=== PATIENT | female | born 1935 | race Caucasian/White ===

== ENCOUNTER 2017-01-07 17:52 | Observation (INO) | payer OTHER, MEDICARE ==
--- NOTE | 2017-01-07 18:08 | EDPHY ---
H & P Stated Complaint: increasing memory prob since friday/htn/off one bp med for 7 days HPI/ROS: CHIEF COMPLAINT: Confusion HISTORY OF PRESENT ILLNESS: The patient is an 81-year-old female with history of hypertension who presents with confusion and imbalance. The patient ran out of her Metoprolol. Over the past few days her blood pressures have been normal according to her home BP cuff, though she thinks it is inaccurate. Today at 9am BP was 147/84, at 3pm BP was 174/93. Today she went to a class on foreign policy. She states she could hear the information but was unable to comprehend it. She feels like her "brain is disconnected". She states she has not been getting much sleep. However, over the past 2 days she has slept 8-9 hours each night. She reports intermittent head pressure for the past 2 days. She had one episode of head pressure that lasted for 5 minutes. The patient additionally notes an unsteadiness, she states "for every 10 feet forward I walk 2 feet sideways". This has been ongoing on an intermittent basis for the last 8-9 years. The patient was here 1 year ago with hypertension and dizziness. Patient is not feeling dizzy. She denies change in vision, new weakness, new numbness, current headache, nausea, vomiting, or diarrhea. The patient's znqmlloc-ra-qzz arrived and states the patient has been disoriented since Friday, 2 days ago. REVIEW OF SYSTEMS: A ten point review of systems was performed and is negative with the exception of the items mentioned in the HPI. Source: Patient, Family - Personal History Current Tetanus/Diphtheria Vaccine: Yes - Medical/Surgical History Hx Asthma: No Hx Chronic Respiratory Disease: No Hx Diabetes: No Hx Cardiac Disease: No Hx Renal Disease: No Hx Cirrhosis: No Hx Alcoholism: No Hx HIV/AIDS: No Hx Splenectomy or Spleen Trauma: No Other PMH: HTN, hyperlipidemia, osteoporosis. Sees Dr. Bernabe Sorensen. - Social History Smoking Status: Never smoked Additional Social History: Audits classes at . - Physical Exam Exam: General Appearance: Alert. Vital signs reviewed. Blood pressure 228/112 at triage. Eyes: Pupils equal and round, no conjunctival injection, no discharge. Anicteric. ENT, Mouth: Mucous membranes are dry, no oropharyngeal erythema or edema. Ears : Decreased hearing to finger rubs. Neck: No lymphadenopathy, supple. Respiratory: Lungs are clear to auscultation; no wheezes, rales, or rhonchi. Cardiovascular: Regular rate and rhythm; no murmur, rub, or gallop. Gastrointestinal: Abdomen is soft and nontender, no masses or organomegaly, bowel sounds normal. Skin: Warm and dry, no rashes on exposed skin, normal color. Back: Nontender to palpation over the thoracolumbar spine. No CVAT. Extremities: No lower extremity edema, no calf tenderness or swelling. Neurological: Alert and oriented. Moving all four extremities easily and equally. Cranial nerves II through XII are examined and are intact (visual acuity not tested). Strength is 5 over 5 bilaterally with testing of all major motor groups. Sensation is intact to light touch over all 4 extremities. Deep tendon reflexes are 2+ in the biceps and knees bilaterally. Gait is normal, she does not walk to the side. Zupfjb-rj-ubsk is performed accurately. No truncal ataxia. Psychiatric: Normal affect. Constitutional: Initial Vital Signs Temperature (C) 36.6 C 01/07/17 18:00 Heart Rate 90 01/07/17 18:00 Respiratory Rate 20 01/07/17 18:00 Blood Pressure 228/112 H 01/07/17 18:00 O2 Sat (%) 97 01/07/17 18:00 O2 Delivery Mode Room Air Allergies/Adverse Reactions: scallops Allergy (Verified 01/07/17 17:58) Home Medications: Medication Instructions Recorded Alendronate Sodium [Fosamax 70 MG 70 mg PO PATIÑO@0700 01/07/17 (*)] Atorvastatin Calcium [Lipitor 20 20 mg PO DAILY 01/07/17 mg (*)] Desvenlafaxine Succinate [Pristiq] 100 mg PO DAILY 01/07/17 Levothyroxine [Synthroid 100 mcg 100 mcg PO DAILY06 01/07/17 (*)] Losartan Potassium [Cozaar 50 mg 100 mg PO DAILY 01/07/17 (*)] Tolterodine Tartrate [Tolterodine 2 mg PO DAILY 01/07/17 Tartrate ER] hydrALAZINE [Apresoline 50 mg (*)] 100 mg PO BID 01/07/17 Metoprolol Succinate Xr [Toprol Xl 100 mg PO DAILY #30 tab 01/08/17 100 mg (*)] Medical Decision Making - Diagnostics EKG Interpretation: The 12 lead EKG was interpreted by myself. See hard copy and/or "tracemaster" electronic copy for interpretation: Sinus rhythm, multiple premature complexes, left atrial abnormality. Imaging Results: CT scan of the brain reviewed by me. There is atrophy. No intracranial hemorrhage. I reviewed the radiology report. ED Course/Re-evaluation: The patient is an 81-year-old female presenting with subjectively altered mental status. The patient states she feels disconnected. Ctakjjzg-er-cma states patient has been disoriented for the past 3 days. The patient has a history of hypertension, she recently ran out of her Metoprolol. She takes Hydralazine and Losartan in the morning. Initial blood pressure here is 228/ 112. Plan to give patient IV Metoprolol. Cardiac workup including labs, chest x- ray, and EKG was started. Head CT was ordered. A CT of the head was obtained. I viewed the images myself on the PACS system. Atrophy, no changes from comparison 1 year ago. 7:40 p.m.: BP is 177/77 after patient received 5mg Metoprolol. An x-ray of the chest was obtained. I viewed the images myself on the PACS system. No pneumonia or evidence of failure. I have not found evidence of infection on my emergency department evaluation. I do not suspect meningitis. There is no evidence of intracranial hemorrhage on her CT scan. I think that her confusion is likely hypertensive encephalopathy due to her medication noncompliance. She is mildly hyponatremic but I doubt that this is the cause of her perceived confusion. Troponin is normal and I do not suspect an acute coronary syndrome. 8:15 p.m.: I spoke to the hospitalist, Dr. Gonsales, who accepts the patient for admission. Last pressure was 200/90. Ljwbfzss-du-cpm tells me the patient is not always compliant with her medications. Patient sleeps a lot during the day. Plan to give 100 long acting Metoprolol orally. Differential Diagnosis: Altered mental status including but not limited to hypertensive encephalopathy, hypoglycemia, infectious process, electrolyte abnormality, head injury and intoxicants. - Data Points Laboratory Results: Laboratory Results 01/07/17 18:25 01/07/17 18:25 Medications Given: Discontinued Medications Atorvastatin Calcium (Lipitor) 20 mg PO DAILY WILI Stop: 07/07/17 08:59 Last Admin: 01/08/17 08:59 Dose: 20 mg Hydralazine HCl (Apresoline) 100 mg PO BID WILI Stop: 07/07/17 08:59 Last Admin: 01/08/17 08:59 Dose: 100 mg Sodium Chloride (Ns) 500 mls @ 0 mls/hr IV ONCE ONE PRN Reason: As Directed Stop: 01/07/17 18:49 Last Admin: 01/07/17 19:40 Dose: 500 mls Levothyroxine Sodium (Synthroid) 100 mcg PO DAILY06 WILI Stop: 07/07/17 05:59 Last Admin: 01/08/17 06:03 Dose: 100 mcg Losartan Potassium (Cozaar) 100 mg PO DAILY WILI Stop: 07/07/17 08:59 Last Admin: 01/08/17 08:59 Dose: 100 mg Metoprolol Succinate (Toprol Xl) 100 mg PO DAILY WILI Stop: 07/07/17 08:59 Last Admin: 01/08/17 10:59 Dose: 100 mg Metoprolol Succinate (Toprol Xl) 100 mg PO ONCE ONE Stop: 01/07/17 23:01 Last Admin: 01/07/17 23:14 Dose: 100 mg Metoprolol Tartrate (Lopressor Injection) 5 mg IVP EDNOW ONE Stop: 01/07/17 18:50 Last Admin: 01/07/17 19:40 Dose: 5 mg Metoprolol Tartrate (Lopressor Injection) 5 mg IVP EDNOW ONE Stop: 01/07/17 19:51 Last Admin: 01/07/17 20:00 Dose: 5 mg Miscellaneous Medication (Desvenlafaxine Succinate [Pristiq]) 100 mg PO DAILY WILI Stop: 07/07/17 08:59 Last Admin: 01/08/17 10:21 Dose: Not Given Miscellaneous Medication (Desvenlafaxine Succinate [Pristiq]) 0 mg PO DAILY [facility] Stop: 07/07/17 09:44 Last Admin: 01/08/17 10:59 Dose: 100 mg Tolterodine Tartrate (Detrol La) 2 mg PO DAILY [facility] Stop: 07/07/17 08:59 Last Admin: 01/08/17 08:59 Dose: 2 mg Departure - Departure Disposition: [facility] Acute Condition: Good Report Scribed for: Allison Mayorga Report Scribed by: Willow Melchor Date of Report: 01/07/17 Time of Report: 18:51 Physician Review and Approval Statement: 01/07/17 18:07 Portions of this note were transcribed by the rn medical surgical. I, Dr. Allison Mayorga, personally performed the history, physical exam, and medical decision- making; and confirmed the accuracy of the information in the transcribed note.
[2017-01-07] MEDS ORDERED: NS 500 ML IV ONE (18:48)
[2017-01-07] MEDS ORDERED: METOPROLOL TARTRATE 5 MG/5 ML INJ IVP ONE ×2 (18:49→19:50)
[2017-01-07 18:56] LABS: % IMMATURE GRANULYOCYTES 0.4 % (0.0-1.1); ABSOLUTE IMMATURE GRANULOCYTES 0.03 10^3/uL (0.00-0.10); ADD DIFF? NO; ADD MORPH? NO; ADD SCAN? NO; ATYPICAL LYMPHOCYTE FLAG 10 (0-99); FRAGMENT RBC FLAG 0 (0-99); HEMATOCRIT 44.2 % (38.0-47.0); HEMOGLOBIN 15.4 g/dL (12.6-16.3); LEFT SHIFT FLG 0 (0-99); LIPEMIA HEMOLYSIS FLAG 90 (0-99); MEAN CELL HEMOGLOBIN 31.8 pg (27.9-34.1); MEAN CELL HEMOGLOBIN CONCENTR. 34.8 g/dL (32.4-36.7); MEAN CELL VOLUME 91.3 fL (81.5-99.8); MEAN PLATELET VOLUME 9.2 fL (8.7-11.7); PLATELET CLUMPS FLAG 0 (0-99); PLATELET COUNT 262 10^3/uL (150-400); RED BLOOD CELL COUNT 4.84 10^6/uL (4.18-5.33); RED CELL DISTRIBUTION WIDTH 13.2 % (11.5-15.2)
[2017-01-07 19:08] LABS: ANION GAP 11 mEq/L (8-16); CALCIUM 9.9 mg/dL (8.5-10.4); CARBON DIOXIDE 27 mEq/l (22-31); CHLORIDE 92 mEq/L (97-110); CREATININE 0.7 mg/dL (0.6-1.0); GLOMERULAR FILTRATION RATE > 60; GLUCOSE 105 mg/dL (70-100); POTASSIUM 4.2 mEq/L (3.5-5.2); SODIUM 130 mEq/L (134-144)
[2017-01-07 19:19] LABS: TROPONIN I < 0.012 ng/mL (0-0.034)
--- NOTE | 2017-01-07 19:23 | CPEKG ---
Heart Rate: 88 RR Interval: 682 P-R Interval: 216 QRSD Interval: 106 QT Interval: 400 QTC Interval: 484 P [place]: 79 QRS [place]: -11 T Wave [place]: 99 EKG Severity - ABNORMAL ECG - EKG Impression: SINUS RHYTHM EKG Impression: LEFT ATRIAL ABNORMALITY EKG Impression: CONSIDER ANTEROSEPTAL INFARCT EKG Impression: NONSPECIFIC T ABNORMALITIES, LATERAL LEADS Electronically Signed By: Allison Mayorga 07-Jan-2017 19:48:18
[2017-01-07 21:39] LABS: COLOR PALE YELLOW; LEUKOCYTE ESTERASE,URINE NEGATIVE (NEGATIVE); NITRITE,URINE NEGATIVE (NEGATIVE)
[2017-01-07] MEDS ORDERED: ONDANSETRON 4 MG/2 ML VIAL IVP PRN (22:13)
[2017-01-07] MEDS ORDERED: ONDANSETRON DISINTEGRATING 4 MG TAB PO PRN (22:13)
[2017-01-07] MEDS ORDERED: ACETAMINOPHEN 325 MG TAB PO PRN (22:13)
[2017-01-07] MEDS ORDERED: METOPROLOL SUCCINATE XR 100 MG TAB PO ONE (23:00)
--- NOTE | 2017-01-07 23:01 | GHP ---
[f rep st] HISTORY AND PHYSICAL DATE OF ADMISSION: 01/07/2017 HISTORY OF PRESENT ILLNESS: The patient is an 81-year-old female with a history of hypertension. S he takes metoprolol-XL, hydralazine, and losartan. Patient ran out of the metoprolol about a week a go. Couple days ago, she was feeling a bit foggy and disconnected. Today, she attended a lecture a nd had a hard time comprehending the content of what was being said even though she understood the w ords. She denies focal weakness. She denies chest pain, shortness of breath, PND, orthopnea, lower extremity edema, urgency, frequency, dysuria, nausea, vomiting, diarrhea. She also had some head pressure and headache, and perhaps some unsteadiness on her feet. Patient's acyqzwla-pg-pig is present at the bedside and said that she was a bit disoriented on . She said her blood pressures were taken as high as 174/93. However, on presentation today, her pres enting blood pressure is 228/112. Again, no anginal symptoms. REVIEW OF SYSTEMS: A complete 10-point review of systems conducted, negative except as noted in the HPI. ALLERGIES: Scallops. HOME MEDICATIONS: Alendronate, atorvastatin, desvenlafaxine, hydralazine, levothyroxine, losartan, Toprol-XL, and tolterodine. PAST MEDICAL HISTORY: Hypertension, hypothyroidism, osteoporosis, hyperlipidemia, and bladder spasm s. SOCIAL HISTORY: No tobacco. Rare alcohol. Lives in [place]. Primary care physician is Dr. Bernabe spicer, [facility]. Incidentally, a good friend of mine. FAMILY HISTORY: Parents . PHYSICAL EXAMINATION: VITAL SIGNS: Temperature 36.6. Blood pressure 228/112, now 162/77. Pulse 9 0, breathing 20 times a minute, 97% on room air. GENERAL: In no acute distress. Alert, articulate . HEENT: Sclerae anicteric. Oropharynx clear. Mucous membranes moist. NECK: Supple. No lympha denopathy or JVD. LUNGS: Clear to auscultation bilaterally. HEART: S1, S2, without murmurs. ABD OMEN: Soft, nontender, nondistended. LOWER EXTREMITIES: No edema. Calves nontender. SKIN: With out rash. NEUROLOGIC: Grossly nonfocal. LABS: White count 8, hematocrit 44, platelets are 262,000. Sodium 130, potassium 4.2, chloride 92, bicarb 27, BUN 17, creatinine 0.7, glucose 105. Troponin less than 0.012. UA is negative. EKG, interpreted by me, shows sinus at 88 with borderline left axis deviation with no ST or T-wave c hanges. There is a PVC, left bundle branch block pattern. Chest x-ray, interpreted by me, shows no heart failure. No acute cardiopulmonary disease. Noncontrast head CT shows elderly brain with sta ble findings of atrophy of probable white matter. No evidence of hemorrhage. I discussed the case Dr. Allison Mayorga. ASSESSMENT AND PLAN: An 81-year-old female with likely hypertensive encephalopathy. 1. Hypertensive encephalopathy, markedly hypertensive with inadvertent cessation of one of her medi cations. We will restart them. This is not a bleed. I do not think it represents an acute cerebro vascular accident, given the absence of focal findings. There is no metabolic derangement, such as urinary tract infection or hyponatremia, to drive the concern for toxic metabolic encephalopathy. I do note her sodium of 130. There is no prior for comparison. To that end, we will give her dose o f Toprol-XL tonight and restart her medications tomorrow. Follow her on telemetry and cycle troponi ns. 2. Hyponatremia. This is mild. We have no prior for comparison. I suspect this is not the etiolo gy or driving what is going on. She did have a sodium of 139 one year ago. We will repeat it in th e morning. We will check a TSH in the morning. 3. Hypothyroidism. Check a TSH in the morning. 4. Hypertension. Continue her medications. We will send her out with a script for Toprol-XL. 5. Prophylaxis. Pharmacologic prophylaxis indicated if in the hospital longer than 24 hours, which I do not anticipate. 6. Disposition: Observation status. /[id number]/MODL
[2017-01-08 05:43] LABS: ANION GAP 7 mEq/L (8-16); CALCIUM 8.7 mg/dL (8.5-10.4); CARBON DIOXIDE 26 mEq/l (22-31); CHLORIDE 99 mEq/L (97-110); CREATININE 0.7 mg/dL (0.6-1.0); GLOMERULAR FILTRATION RATE > 60; GLUCOSE 94 mg/dL (70-100); POTASSIUM 4.2 mEq/L (3.5-5.2); SODIUM 132 mEq/L (134-144)
[2017-01-08 05:50] LABS: TROPONIN I 0.016 ng/mL (0-0.034)
[2017-01-08] MEDS ORDERED: LEVOTHYROXINE 100 MCG TAB PO SCH (06:00)
[2017-01-08] MEDS ORDERED: Desvenlafaxine Succinate [Pristiq] 100 MG PO SCH ×3 (09:00→09:45)
[2017-01-08] MEDS ORDERED: LOSARTAN POTASSIUM 50 MG TAB PO SCH (09:00)
[2017-01-08] MEDS ORDERED: TOLTERODINE TARTRATE 2 MG EXT REL CAP PO SCH (09:00)
[2017-01-08] MEDS ORDERED: ATORVASTATIN CALCIUM 20 MG TAB PO SCH (09:00)
[2017-01-08] MEDS ORDERED: METOPROLOL SUCCINATE XR 100 MG TAB PO SCH (09:00)
[2017-01-08 11:53] VITALS: BP 111/54; PULSE 90; RESP 19; TEMP 97.8; O2SAT 94
--- NOTE | 2017-01-08 15:25 | PDDCSUM ---
Discharge Summary Discharge Summary: DISCHARGE SUMMARY FOLLOW-UP ITEMS: Monitor blood pressure readings through primary care office DATE OF ADMISSION: 01/07/17 DATE OF DISCHARGE: 01/08/17 DISCHARGE DIAGNOSES: 1. Hypertensive crisis 2. Acute hyponatremia CONSULTATIONS: None PROCEDURES / IMAGING: Head CT demonstrating no intracranial hemorrhage CHIEF COMPLAINT: Cognitive fogginess SUBJECTIVE: Patient is feeling well at time of discharge PHYSICAL EXAM ON DISCHARGE: Systolic blood pressure is 140-160, heart rate 80, afebrile overnight, satting well on room air, alert awake oriented x3 no apparent distress, cranial nerves 2 -12 are intact and tested, motor strength 5/5 bilateral upper and lower extremities LABS ON DISCHARGE: Creatinine 0.7, potassium 4.2, serum sodium 132 HOSPITAL COURSE BY PROBLEM: 1. Hypertensive crisis. Patient experienced acute hypertensive urgency with cognitive symptoms but no overt air intracranial hemorrhage or other end-organ failure. This was secondary to recent discontinuation of 1 of her home antihypertensive medications. We re-initiated her home metoprolol succinate, continued her other medications, and her systolic blood pressure was in a healthy range at time of discharge. Hypertensive symptoms were also improved. Of note, the patient's home blood pressure cuff may be inaccurate and we recommended that she follow up in the short term with her primary care provider for blood pressure recheck and potential addition of hydrochlorothiazide. 2. Acute hyponatremia. Most likely secondary to renal hypoperfusion in the setting of high blood pressures and potentially reduced cardiac output. Her blood pressures were improved, her serum sodium level improved, no further workup is indicated. DISCHARGE MEDICATIONS: Please see official discharge medication reconciliation sheet in chart , metoprolol succinate 100 mg daily, losartan 100 mg daily, hydralazine 100 mg twice daily. DISCHARGE INSTRUCTIONS: Follow up with primary care provider on 01/13.
[2017-01-08] MEDS ORDERED: METOPROLOL SUCCINATE XR 100 MG TAB PO ONE (20:56)
== END 2017-01-08 13:15 | disposition home or self-care (01) ==
LOC: F2W 21:49
PROVIDERS: ADMIT Internal Medicine; ATTEND Internal Medicine
DX: I16.9 Hypertensive crisis, unspecified (principal); E87.1 Hypo-osmolality and hyponatremia; E03.9 Hypothyroidism, unspecified; E78.5 Hyperlipidemia, unspecified
CPT/HCPCS: 70450; 71020; 93005; G0378; 96374

== ENCOUNTER 2017-10-12 17:52 | Inpatient (IN) | payer OTHER, MEDICARE ==
--- NOTE | 2017-10-12 18:41 | EDPHY ---
H & P Time Seen by Provider: 10/12/17 18:12 HPI/ROS: HPI Right hip pain. Fall. 82-year-old female for by private vehicle with downstairs neighbor. Patient was sitting at her dinner table. She fell asleep at the dinner table. She fell off the side of the chair onto her right hip and shoulder. She was startled by the impact and immediately awoke. She reports that she had a mild headache earlier but has no headache now. She has had no nausea or vomiting. She complained of some right shoulder discomfort but she denies this now as well. She complains of right hip pain that is worse with any movement. She describes this as pain in the posterior lateral aspect of the hip in the medial aspect of the mid femur. No other complaint or injury. ROS: Constitutional: No fever, no chills. No weakness. Eyes: No discharge. No changes in vision. ENT: No sore throat. No nasal congestion or rhinorrhea. Respiratory: No cough. No shortness of breath. Cardiac: No chest pain, no palpitations. Gastrointestinal: No abdominal pain, no vomiting, no diarrhea. Genitourinary: No hematuria. No dysuria or increased frequency with urination. Musculoskeletal: No back pain. No neck pain. As above. Skin: No rashes. No lacerations or abrasions. Neurological: No headache. No focal weakness or altered sensation. Past medical history: Hypertension, hyperlipidemia, osteoporosis, she is fractured her left femur. Her primary care physician is Dr. Ross. She does not take any anticoagulant or antiplatelet agents. Social history: Physical Exam: General Appearance: Alert, no distress. This patient is responding to questions appropriately and in full sentences. This patient appears well- hydrated and well-nourished. Head: Normocephalic atraumatic. Face: Facial bones are stable on palpation. Eyes: Pupils equal and round and reactive to light, no pallor or injection. No lid erythema or edema. ENT, Mouth: Mucous membranes moist. Dentition is intact. No malocclusion of the jaw. No tongue lacerations or abrasions. Pharynx is clear. The bilateral nasal canals are clear. No septal hematoma. Respiratory: There are no retractions, lungs are clear to auscultation with good air movement bilaterally. Chest wall is stable to AP and lateral palpation. Cardiovascular: Regular rate and rhythm. No murmur. Gastrointestinal: Abdomen is soft and nontender, no masses, bowel sounds normal. Neurological: Motor sensory function is intact. Cranial nerves are normal. Cerebellar function intact. Skin: Warm and dry, no rashes. No lacerations, abrasions or contusions. Musculoskeletal: Neck is supple and nontender. The trachea is midline. No midline cervical, thoracic, lumbar or sacral tenderness on palpation. No flank tenderness on palpation. Right lower extremity is elevated by a pillow under the knee 45 degree angle at the knee. The right lower extremity appears slightly shorter than the left lower extremity. She has got some tenderness on palpation over the posterior lateral hip area. No palpable deformity or crepitus noted on palpation of this area. The right lower extremity is neurovascularly intact. Extremities are symmetrical, full range of motion otherwise. All joints in the bilateral upper and bilateral lower extremities range without pain or impingement other than noted. No tenderness on palpation of the long bones in the bilateral upper and bilateral lower extremities other than noted. Psychiatric: No agitation. No depression. Database: EKG: Imaging: Right hip x-ray series: Significant for a femoral neck fracture. Interpreted by me. Procedures: Emergency department course: Vital signs reviewed. She is moderately hypertensive. Vital signs otherwise normal. An IV was placed. At this time she is declining pain medication. She was sent for right hip x-ray series. Patient given 25 mcg of IV fentanyl and 4 mg of IV Zofran prior to x-rays. Started on IV normal saline with 500 cc to be given over the next hour. 7:45 p.m., patient re-evaluated. Discussed results of x-ray and diagnosis of femoral neck fracture. Discussed need for admission and orthopedic consultation. 8:30 p.m., spoke with Dr. Sukumar Lackey of the Orthopedic service. He will plan on operating on this patient tomorrow morning. 8:45 p.m., Dr. Grace, admitting hospitalist notify the patient is to be NPO after midnight and plan for surgery tomorrow by Dr. Lackey. The patient's remaining emergency department course under my care has been uneventful. The patient was admitted in stable condition to the hospitalist service. Differential Diagnosis: The differential diagnosis on this patient includes but is not limited to right hip fracture, right femur fracture. Traumatic brain injury This represents a partial list of diagnoses considered. These considerations are based on history , physical exam, past history, reassessment and diagnostic testing. Smoking Status: Former smoker Constitutional: Initial Vital Signs Temperature (C) 36.6 C 10/12/17 18:07 Heart Rate 62 10/12/17 18:07 Respiratory Rate 20 10/12/17 18:07 Blood Pressure 162/86 H 10/12/17 18:07 O2 Sat (%) 96 10/12/17 18:07 O2 Delivery Mode Nasal Cannula O2 (L/minute) 2 Allergies/Adverse Reactions: scallops Allergy (Verified 01/07/17 17:58) Home Medications: Medication Instructions Recorded Atorvastatin Calcium [Lipitor 20 20 mg PO DAILY 01/07/17 mg (*)] Desvenlafaxine Succinate [Pristiq] 100 mg PO DAILY 01/07/17 Levothyroxine [Synthroid 100 mcg 100 mcg PO DAILY06 01/07/17 (*)] Losartan Potassium [Cozaar 50 mg 100 mg PO DAILY 01/07/17 (*)] hydrALAZINE [Apresoline 50 mg (*)] 100 mg PO BID 01/07/17 Metoprolol Succinate Xr [Toprol Xl 100 mg PO DAILY #30 tab 01/08/17 100 mg (*)] Medical Decision Making - Diagnostics Imaging Results: Imaging Impressions Femur X-Ray 10/12/17 18:32 Impression: Right femoral neck fracture. Pelvis X-Ray 10/12/17 18:32 Impression: Right hip fracture.. - Data Points Laboratory Results: Laboratory Results 10/12/17 19:40 10/12/17 19:40 10/12/17 10/12/17 19:40 19:40 WBC 11.96 10^3/uL H 10^3/uL (3.80-9.50) RBC 4.18 10^6/uL 10^6/uL (4.18-5.33) Hgb 13.7 g/dL g/dL (12.6-16.3) Hct 39.6 % % (38.0-47.0) MCV 94.7 fL fL (81.5-99.8) MCH 32.8 pg pg (27.9-34.1) MCHC 34.6 g/dL g/dL (32.4-36.7) RDW 13.0 % % (11.5-15.2) Plt Count 218 10^3/uL 10^3/uL (150-400) MPV 9.1 fL fL (8.7-11.7) Neut % (Auto) 80.0 % H % (39.3-74.2) Lymph % (Auto) 11.9 % L % (15.0-45.0) Kerr % (Auto) 6.8 % % (4.5-13.0) Eos % (Auto) 0.3 % L % (0.6-7.6) Baso % (Auto) 0.3 % % (0.3-1.7) Nucleat RBC Rel Count 0.0 % % (0.0-0.2) Absolute Neuts (auto) 9.58 10^3/uL H 10^3/uL (1.70-6.50) Absolute Lymphs (auto) 1.42 10^3/uL 10^3/uL (1.00-3.00) Absolute Monos (auto) 0.81 10^3/uL H 10^3/uL (0.30-0.80) Absolute Eos (auto) 0.04 10^3/uL 10^3/uL (0.03-0.40) Absolute Basos (auto) 0.03 10^3/uL 10^3/uL (0.02-0.10) Absolute Nucleated RBC 0.00 10^3/uL 10^3/uL (0-0.01) Immature Gran % 0.7 % % (0.0-1.1) Immature Gran # 0.08 10^3/uL 10^3/uL (0.00-0.10) Sodium 130 mEq/L L mEq/L (135-145) Potassium 3.9 mEq/L mEq/L (3.5-5.2) Chloride 92 mEq/L L mEq/L (97-110) Carbon Dioxide 24 mEq/l mEq/l (22-31) Anion Gap 14 mEq/L mEq/L (8-16) BUN 17 mg/dL mg/dL (7-23) Creatinine 0.7 mg/dL mg/dL (0.6-1.0) Estimated GFR > 60 Glucose 99 mg/dL mg/dL (70-100) Calcium 9.4 mg/dL mg/dL (8.5-10.4) Medications Given: Discontinued Medications Fentanyl (Sublimaze) 25 mcg IVP EDNOW ONE Stop: 10/12/17 18:47 Last Admin: 10/12/17 18:50 Dose: 25 mcg Sodium Chloride (Ns) 500 mls @ 0 mls/hr IV EDNOW ONE; Wide Open PRN Reason: Protocol Stop: 10/12/17 18:47 Last Admin: 10/12/17 18:52 Dose: 500 mls Ondansetron HCl (Zofran) 4 mg IVP EDNOW ONE Stop: 10/12/17 18:47 Last Admin: 10/12/17 18:50 Dose: 4 mg Departure - Departure Disposition: [facility] Inpatient Acute Clinical Impression: Injury of right hip, Fall from chair, Fracture of femoral neck, right
[2017-10-12] MEDS ORDERED: NS 500 ML IV ONE (18:46)
[2017-10-12] MEDS ORDERED: ONDANSETRON 4 MG/2 ML VIAL IVP ONE (18:46)
[2017-10-12] MEDS ORDERED: fentaNYL 100 MCG/2 ML INJ IVP ONE (18:46)
[2017-10-12 19:55] LABS: PLATELET COUNT 218 10^3/uL (150-400)
[2017-10-12] MEDS ORDERED: ONDANSETRON DISINTEGRATING 4 MG TAB PO PRN (21:41)
[2017-10-12] MEDS ORDERED: OXYCODONE/APAP 5/325 TAB PO PRN (21:41)
[2017-10-12] MEDS ORDERED: ACETAMINOPHEN 325 MG TAB PO PRN (21:41)
[2017-10-12] MEDS ORDERED: ONDANSETRON 4 MG/2 ML VIAL IVP PRN (21:41)
[2017-10-12] MEDS ORDERED: HYDRALAZINE HCL 100 MG PO SCH (22:00)
[2017-10-12] MEDS: NS 1,000 ML IV SCH (22:18)
--- NOTE | 2017-10-12 22:20 | GHP ---
[f rep st] HISTORY AND PHYSICAL DATE OF ADMISSION: 10/12/2017 CHIEF COMPLAINT: Right hip pain after fall. HISTORY OF PRESENT ILLNESS: This is an 82-year-old female with a history of hypertension and obstruc tive sleep apnea. She states that her obstructive sleep apnea is not that well treated. She frequen tly falls asleep during the day. She was at dinner table and fell asleep, slid off her chair, and hi t her right hip as well as her head. She woke up immediately. She complained of right hip pain and has a hip fracture. She does have a little bit of shortness of breath, she says, after the fall. He r head does hurt a little bit where she fell on it. She also has some neck pain that is around the m uscles. She denies any chest pain. She is able to walk around town without any chest pain. She has severe arthritis that limits a lot of her mobility. REVIEW OF SYSTEMS: Ten-point review of systems was obtained and otherwise was negative. PAST MEDICAL HISTORY: 1. Hypertension, which seems to be a little bit difficult to control. 2. Obstructive sleep apnea. 3. Depression. 4. Hypothyroidism. 5. Hyperlipidemia. MEDICATIONS: Reviewed. SOCIAL HISTORY: No smoking. Lives with her son and [id number] in an apartment downstairs. FAMILY HISTORY: Both parents are . PHYSICAL EXAM: VITAL SIGNS: Afebrile, blood pressure 172/73, heart rate 84, oxygen saturation 95% 2 L. GENERAL: Patient is well developed, in no apparent distress. HEENT: Nonicteric sclerae. Extr aocular movements intact. Moist mucous membranes. NECK: Supple. No thyromegaly. LUNGS: Good eff ort. Clear to auscultation bilaterally. CARDIOVASCULAR: Regular rate and rhythm. No murmurs, rubs , or gallops. ABDOMEN: Positive bowel sounds. Soft, nontender, nondistended. No hepatosplenomegal y. EXTREMITIES: No clubbing, cyanosis, or edema. SKIN: Without rash. Warm, dry, intact. NEUROLO GIC: Alert and oriented x3. Moving all 4 extremities equally. PSYCH: Normal affect. DATA REVIEWED: Femur x-ray shows right femoral neck fracture. CBC is essentially normal. Sodium is low at 130. Creatinine is normal. ASSESSMENT: An 82-year-old female presenting with a right hip fracture. PLAN: 1. Right hip fracture. Patient will be going to OR tomorrow. She is medically optimized for surger y, which can proceed tomorrow. We will get an EKG and a chest x-ray prior to the operation. 2. Hyponatremia, probably related to her hydrochlorothiazide, which we will hold perioperatively. 3. Hypertension. Will continue her oral hydralazine, metoprolol, losartan. 4. Obstructive sleep apnea. Continue CPAP at night. 5. Code status. Patient is a full code. /[id number]/MODL
--- NOTE | 2017-10-12 22:27 | CPEKG ---
Heart Rate: 84 RR Interval: 714 P-R Interval: 244 QRSD Interval: 108 QT Interval: 372 QTC Interval: 440 P Cleveland: 76 QRS Cleveland: -13 T Wave Cleveland: 127 EKG Severity - ABNORMAL ECG - EKG Impression: SINUS RHYTHM EKG Impression: FIRST DEGREE AV BLOCK EKG Impression: PROBABLE LEFT ATRIAL ABNORMALITY EKG Impression: CONSIDER ANTEROSEPTAL INFARCT EKG Impression: ABNORMAL T, CONSIDER ISCHEMIA, LATERAL LEADS Electronically Signed By: Jair Magallanes 13-Oct-2017 06:06:16
[2017-10-13] MEDS: LEVOTHYROXINE 100 MCG TAB PO SCH (05:13)
[2017-10-13 05:36] LABS: PLATELET COUNT 188 10^3/uL (150-400)
--- NOTE | 2017-10-13 07:59 | PDMN ---
Medical Necessity Medical necessity: est los>2mn for R hip fx r/t fall from chair, requiring surgical intervention, and hyponatremia; comorbid advanced age, poorly controlled htn; SILVIA, HLD, and depression; per order and H&P 10/12/17
[2017-10-13] MEDS ORDERED: NON-FORMULARY NEW DRUG (Desvenlafaxine Succinate [Pristiq] 100 MG) PO SCH (09:00)
[2017-10-13] MEDS: DESVENLAFAXINE SUCCINATE PO SCH (09:54)
[2017-10-13] MEDS ORDERED: ceFAZolin 2 GM/SWFI 2 GM/20 ML SYR IVP ONE (09:58)
[2017-10-13] MEDS: METOPROLOL SUCCINATE XR 50 MG TAB PO SCH (10:39)
[2017-10-13] MEDS: ATORVASTATIN CALCIUM 20 MG TAB PO SCH (10:39)
[2017-10-13] MEDS: LOSARTAN POTASSIUM 50 MG TAB PO SCH (10:42)
[2017-10-13] MEDS: NS 1,000 ML IV SCH (11:26)
--- NOTE | 2017-10-13 13:32 | ASMTCASEMG ---
Living Arrangements What is your living Answers: Alone arrangement? Who do you live with? Type Of Residence What kind of residence do Answers: House you live in? Discharge Plan Comments Coordination Status Comments Notes: CM spoke w/ HANNA Alcazar regarding d/c POC. Pt is a 82 y/o female admitted for right hip fracture. Pt will most likely need a surgical intervention. Needs are TBD at this time. CM will follow post surgery. CM to follow. Plan: TBD Date Signed: 10/13/2017 01:32 PM Electronically Signed By:MLEI Benoit
[2017-10-13] MEDS ORDERED: BUPIVACAINE/EPI 0.5% 30 ML SDV ONE (14:24)
[2017-10-13] MEDS ORDERED: BUPIVACAINE 0.5% 30 ML SDV ONE (14:24)
[2017-10-13] MEDS ORDERED: POLYMYXIN B SULFATE 500,000 UNIT/10 ML SYR IRR ONE (14:25)
[2017-10-13] MEDS ORDERED: BACITRACIN 50,000 UNITS/10 ML SYR IRR ONE (14:25)
[2017-10-13] MEDS ORDERED: LIDOCAINE 1% 2 ML INJ ID PRN (14:58)
[2017-10-13] MEDS ORDERED: LR 1,000 ML IV ONE (14:58)
[2017-10-13] MEDS ORDERED: BUPIVACAINE 0.25% 30 ML SDV ONE (15:12)
--- NOTE | 2017-10-13 15:46 | PDANEPAE ---
ANE History of Present Illness 82 year old female for right hip fracture repair. ANE Past Medical History - Cardiovascular History Hx Hypertension: Yes Hx Arrhythmias: No Hx Chest Pain: No Hx Coronary Artery / Peripheral Vascular Disease: No Hx CHF / Valvular Disease: No Hx Palpitations: No - Pulmonary History Hx COPD: No Hx Asthma/Reactive Airway Disease: No Hx Recent Upper Respiratory Infection: No Hx Oxygen in Use at Home: No Hx Sleep Apnea: Yes Sleep Apnea Screening Result - Last Documented: Positive - Endocrine History Hx Diabetes: No Hypothyroid: No Hyperthyroid: No Obesity: no - Renal History Hx Renal Disorders: No - Liver History Hx Hepatic Disorders: No - Neurological & Psychiatric Hx Hx Neurological and Psychiatric Disorders: No ANE Review of Systems Review of systems is: negative Review of Systems: - Exercise capacity Exercise capacity: >=4 METS ANE Patient History - Allergies Allergies/Adverse Reactions: scallops Allergy (Verified 10/12/17 21:08) Vomiting - Home Medications Home medications: home medication list seen and reviewed Home Medications: Atorvastatin Calcium [Lipitor 20 mg (*)] 20 mg PO DAILY 01/07/17 [Last Taken ] Desvenlafaxine Succinate [Pristiq] 100 mg PO DAILY 01/07/17 [Last Taken 10/12/17 ] Levothyroxine [Synthroid 100 mcg (*)] 100 mcg PO DAILY06 01/07/17 [Last Taken ] Hydralazine HCl [Apresoline 100 mg] 100 mg PO TID 10/12/17 [Last Taken 10/12/17 16:00] Losartan/Hydrochlorothiazide [Hyzaar 100-25 Tablet] 1 each PO DAILY 10/12/17 [ Last Taken 10/12/17] - NPO status NPO Since - Liquids (Date): 10/12/17 NPO Since - Liquids (Time): 23:30 NPO Since - Solids (Date): 10/12/17 NPO Since - Solids (Time): 22:00 - Smoking Hx Smoking Status: Former smoker ANE Labs/Vital Signs - Labs Result Diagrams: 10/13/17 05:29 10/13/17 05:29 - Vital Signs Vital Signs: reviewed preoperatively; see RN documention for details Blood Pressure: 162/72 Heart Rate: 80 Respiratory Rate: 16 O2 Sat (%): 92 Height: 154.94 cm Weight: 59.421 kg ANE Physical Exam - Airway Neck exam: FROM Mallampati Score: Class 2 Mouth exam: poor dentition (All upper teeth recently removed) - Pulmonary Pulmonary: no respiratory distress - Cardiovascular Cardiovascular: regular rate and rhythym - ASA Status ASA Status: III ANE Anesthesia Plan Anesthesia Plan: general endotracheal anesthesia Total IV Anesthesia: No
[2017-10-13] MEDS ORDERED: PROPOFOL 200 MG/20 ML VIAL ONE (15:49)
[2017-10-13] MEDS ORDERED: fentaNYL 100 MCG/2 ML INJ ONE (15:49)
--- NOTE | 2017-10-13 16:08 | HOSPPROG ---
Hospitalist Progress Note Assessment/Plan: 82y female with hip pain after fall. First encounter, chart reviewed. #Hip fx to OR today #Hx SILVIA cont CPAP #Hyponatremia follow possibly related to HCTZ recheck in am #HTN mild may need meds added #Leukocytosis resolved 2/2 fracture likely #Dispo will need SNF admit to inpt D/W pt and daughter in law labs in am Subjective: Feeling well. Pain controlled. No other issues. Objective: Vital Signs Temp Pulse Resp BP Pulse Ox 37.7 C 80 16 162/72 H 92 10/13/17 12:00 10/13/17 15:46 10/13/17 15:46 10/13/17 15:46 10/13/17 15:46 Laboratory Results 10/13/17 05:29 10/13/17 05:29 10/12/17 10/13/17 10/14/17 05:59 05:59 05:59 Intake Total 500 Output Total 525 450 Balance -25 -450 - Physical Exam Constitutional: no apparent distress, appears nourished, obese Eyes: PERRL, anicteric sclera, EOMI Ears, Nose, Mouth, Throat: moist mucous membranes, hearing normal, ears appear normal Cardiovascular: regular rate and rhythym, No JVD, No edema Respiratory: no respiratory distress, no rales or rhonchi, reduced air movement Gastrointestinal: normoactive bowel sounds, No tenderness, No ascites Skin: warm, normal color, No erythema Musculoskeletal: joint tenderness, pain with ROM, generalized weakness Neurologic: AAOx3 Psychiatric: interacting appropriately, not anxious, not encephalopathic, thought process linear ICD10 Worksheet Patient Problems: Problems Problem Status Onset Hypertensive urgency Acute Injury of right hip Acute Fall from chair Acute Fracture of femoral neck, right Acute
[2017-10-13] MEDS ORDERED: LR 500 ML IV PRN (17:01)
[2017-10-13] MEDS ORDERED: PHENYLEPHRINE HCL 100 MCG/ML SYR IVP PRN (17:01)
[2017-10-13] MEDS ORDERED: ONDANSETRON 4 MG/2 ML VIAL IVP PRN (17:01)
[2017-10-13] MEDS ORDERED: LABETALOL HCL 5 MG/ML 20 ML MDV IVP PRN (17:01)
[2017-10-13] MEDS ORDERED: fentaNYL 100 MCG/2 ML INJ IVP PRN (17:01)
[2017-10-13] MEDS ORDERED: NALOXONE HCL 0.4 MG/ML INJ IVP PRN (17:01)
[2017-10-13] MEDS ORDERED: SUGAMMADEX SODIUM 200 MG/2 ML VIAL IVP ONE (17:07)
[2017-10-13] MEDS ORDERED: ONDANSETRON 4 MG/2 ML VIAL ONE (17:07)
[2017-10-13] MEDS ORDERED: ROCURONIUM 50 MG/5 ML VIAL ONE (17:08)
[2017-10-13] MEDS ORDERED: PHENYLEPHRINE 10 MG/ML SDV ONE (17:08)
[2017-10-13] MEDS ORDERED: LIDOCAINE 2% 5 ML SDV ONE (17:08)
--- NOTE | 2017-10-13 17:37 | POSTOPPROG ---
Post Op Note Date of Operation: 10/13/17 Surgeon: Sukumar Lackey Anesthesiologist: Amrik QUINN Anesthesia: GET(General Endotracheal) Pre-op Diagnosis: R hip valgus impacted femoral neck fracture Post-op Diagnosis: same Procedure: R hip percutaneous screw fixation Inf/Abcess present in the surg proc area at time of surgery?: No EBL: 50-100 (30)
[2017-10-13] MEDS ORDERED: hydrALAZINE 20 MG/ML VIAL IVP PRN (17:49)
[2017-10-13] MEDS ORDERED: hydrALAZINE 20 MG/ML VIAL ONE (17:57)
--- NOTE | 2017-10-13 19:23 | GCON ---
[f rep st] CONSULTATION ORTHOPEDIC CONSULTATION DATE OF CONSULTATION: 10/13/2017 CHIEF COMPLAINT: Right hip pain. HISTORY OF PRESENT ILLNESS: 82-year-old female fell sleep at the dinner table and fell off to her ri t side. Complained of immediate pain. She did hit her head, but denies unconsciousness. She has had a left femoral neck fracture treated with percutaneous screw fixation approximately 8 years ago, which she has done well from. She has no shortness of breath, fever, chills, nausea, vomiting, chest pain, numbness, or tingling upon examination. She typically ambulates without an assistive device, but does move slowly and minimally. PAST MEDICAL HISTORY: Includes hypertension, obstructive sleep apnea, depression, hypothyroidism, an d hyperlipidemia. PAST SURGICAL HISTORY: As above. ALLERGIES: Scallops. MEDICATIONS: Reviewed. SOCIAL HISTORY: Denies smoking. PHYSICAL EXAM: VITAL SIGNS: Stable. She is afebrile. GENERAL: Awake, alert, and oriented x3, in no acute distress. HEENT: White sclerae. RESPIRATORY: Easy nonlabored breathing. ABDOMEN: Soft and nontender, nondistended. EXTREMITIES: Right lower extremity is in a flexed and internally rotated position for comfort. There is no erythe ma or ecchymoses surrounding her right hip. Mild swelling. Compartments of her thigh and calf are s oft and nontender. She has motor intact to EHL, FHL, tibialis anterior, gastrocsoleus. Palpable DP, PT pulses. LABORATORY DATA: Reviewed, reveals a white count of 9.39, hemoglobin 13.2. IMAGING: Pelvis x-ray reveals a valgus impacted right-sided femoral neck fracture, as well as previo us hardware from the left hip percutaneous screw fixation. ASSESSMENT AND PLAN: 82-year-old female with a right hip valgus impacted femoral neck fracture. Rec ommend percutaneous screw fixation. Risks and benefits of surgery and nonoperative treatment were di scussed, including a high risk of morbidity and mortality with non operative treatment. Risks of caitie janel include inherent risks of general anesthesia, including heart attack, stroke, and remote possibi lity of ; inherent risks of surgery including bleeding, infection, and damage to surrounding dinah tomic structures; specific to this procedure, the risk of malunion, nonunion, symptomatic hardware, t he possibility of subsequent surgery in the event of hardware failure or malunion or nonunion, and co nversion to total hip arthroplasty. The patient and [id number] were educated on the fact that e lu with surgical management hip fractures, in this patient population, present a 20% to 30% chance o f morbidity and mortality in the first year from surgery. Patient and the daughter in-law understand and agree. Consent was signed by the patient. /[id number]/MODL
--- NOTE | 2017-10-13 20:12 | POSTANESTH ---
Post Anesthetic Evaluation Cardiovascular Status: Normal, Stable, Similar to Pre-Op Cond Respiratory Status: Normal, Stable, Similar to Pre-op Cond. Level of Consciousness/Mental Status: Can Participate in Eval, Alert and Oriented Pain Control: Adequate, Prn Tx Ordered Nausea/Vomiting Control: Adequate, Prn Tx Ordered Complications Possibly Related to Anesthesia: None Noted
--- NOTE | 2017-10-13 20:54 | GOP ---
[f rep st] OPERATIVE REPORT DATE OF OPERATION: 10/13/2017 SURGEON: Sukumar Lackey MD ANESTHESIA: General. PREOPERATIVE DIAGNOSIS: Right hip valgus impacted femoral neck fracture. POSTOPERATIVE DIAGNOSIS: Right hip valgus impacted femoral neck fracture. PROCEDURE PERFORMED: Right hip percutaneous screw fixation of the femoral neck fracture. FINDINGS: SPECIMENS: None. ESTIMATED BLOOD LOSS: 30 cc. INDICATIONS: Patient sustained a mechanical fall sustaining the injury. She had a previous injury o n the left which was treated in a similar fashion. After discussion of the pros, cons, risks, benefi ts, expected recovery and prognosis, as well as the pros, cons versus nonoperative treatment, she liu cted to proceed with the procedure. She verbalized understanding of the risks and benefits of the pr ocedure and signed the informed consent. DESCRIPTION OF PROCEDURE: Patient was seen in the holding area. Operative site was signed. The pat ient was taken to the operating room and induced under general anesthesia. She was placed on the fra cture table and appropriately positioned under fluoroscopy. The right hip was prepped and draped in the usual sterile fashion. Operative site was confirmed by signature. Operative time-out performed. Allergies reviewed. Antibiotics administered. In a percutaneous fashion, guidewires were placed under fluoroscopic visualization in an inverse tria ngle formation. Cannulated drill was then used to drill over the guide pins. Appropriate length scr ews were then inserted again under fluoroscopic visualization. The guide pins were removed. The inc ision was irrigated with sterile saline. Closed with 2-0 Vicryl and 4-0 V-Loc. Dermabond, Steri-Str ips and sterile dressings were applied. The patient was safely awakened and extubated, taken recover y room in stable condition. The entire procedure was performed by myself, Dr. Lackey. Dictation was pe rformed by myself, Dr. Lackey. I was present for the entirety of the service and for emergency cross-c overage. DRAINS: None. COMPLICATIONS: None. IMPLANTS: Synthes 7.3 mm partially threaded screws with washers x3. /[id number]/MODL
[2017-10-13] MEDS ORDERED: ceFAZolin 2 GM/DEXTROSE 100 ML IV SCH (22:00)
[2017-10-14] MEDS: ceFAZolin 2 GM/SWFI 2 GM/20 ML SYR IVP SCH ×2 (00:06→09:05)
[2017-10-14] MEDS: LEVOTHYROXINE 100 MCG TAB PO SCH (04:34)
[2017-10-14] MEDS ORDERED: MAGNESIUM HYDROXIDE 30 ML UDCUP PO PRN (07:05)
[2017-10-14] MEDS ORDERED: LACTULOSE 20 GM/30 ML UDCUP PO PRN (07:05)
[2017-10-14] MEDS ORDERED: BISACODYL 10 MG SUPP PR PRN (07:05)
[2017-10-14] MEDS ORDERED: POLYETHYLENE GLYCOL 3350 17 GM PKT PO PRN (07:05)
--- NOTE | 2017-10-14 07:52 | SOAPPROG ---
SOAP Progress Note Assessment/Plan: Assessment: Postoperative day 1 status post Right hip valgus impacted femoral neck fracture percutaneous screw fixation Plan: Partial weight-bearin%, with assist. PT/OT Pain control as needed DVT prophylaxis: Lovenox 40 mg daily x4 weeks Incentive spirometry 10 times per hour Disposition: Likely to subacute rehab/[facility] facility when approved likely tomorrow. 10/14/17 07:48 Subjective: No acute events overnight. Sleeping comfortably with CPAP. Pain very well controlled. States pain is improved from preop. Denies fevers chills nausea vomiting chest pain shortness of breath numbness or tingling. Objective: Vital Signs Temp Pulse Resp BP Pulse Ox 37.2 C 72 16 132/53 H 85 L 10/14/17 04:00 10/14/17 04:00 10/14/17 04:00 10/14/17 04:00 10/14/17 04:00 Laboratory Results 10/14/17 04:25 10/14/17 04:25 10/13/17 10/14/17 10/15/17 05:59 05:59 05:59 Intake Total 500 950 Output Total 525 1005 Balance -25 -55 Awake alert and oriented x3 No acute distress Easy nonlabored breathing Right hip minimal swelling, no ecchymosis Dressing clean dry intact no erythema drainage or signs of infection Thigh and calf compartments soft compressible, nontender Sensation intact to light touch from L3-S1 Motor intact EHL FHL tibialis anterior and gastrocsoleus Palpable DP PT pulses - Time Spent With Patient Time Spent With Patient: 15 - Pending Discharge Pending Discharge Within 24 Hours: Yes Pending Discharge Date: 10/15/17 Pending Discharge Time: 15:00 ICD10 Worksheet Patient Problems: Problems Problem Status Onset Fall from chair Acute Fracture of femoral neck, right Acute Injury of right hip Acute Hypertensive urgency Acute
[2017-10-14] MEDS: METOPROLOL SUCCINATE XR 50 MG TAB PO SCH ×2 (09:05→09:18)
[2017-10-14] MEDS: ENOXAPARIN 40 MG/0.4 ML SYR SC SCH (09:05)
[2017-10-14] MEDS: ATORVASTATIN CALCIUM 20 MG TAB PO SCH (09:06)
[2017-10-14] MEDS: DESVENLAFAXINE SUCCINATE PO SCH (09:15)
[2017-10-14] MEDS: LOSARTAN POTASSIUM 50 MG TAB PO SCH (09:17)
[2017-10-14] MEDS: PSYLLIUM METAMUCIL 1 PKT PO SCH ×2 (09:33→20:45)
[2017-10-14] MEDS: SENNOSIDES/DOCUSATE SODIUM TAB PO SCH ×2 (09:33→20:45)
--- NOTE | 2017-10-14 12:21 | HOSPPROG ---
Hospitalist Progress Note Assessment/Plan: 82y female with hip pain after fall. First encounter, chart reviewed. #Hip fx Status post right hip screw fixation #Hx SILVIA cont CPAP # hypoxemia O2 sats on room air are 85% #Hyponatremia follow possibly related to HCTZ , this is on hold Sodium is 129 Patient likes to drink water and tea. Recommended that she increase protein intake she is agreeable #HTN Blood pressure stable #Leukocytosis resolved 2/2 fracture likely #Dispo will need SNF admit to inpt Subjective: Patient is overall feeling quite well. But has not had much of an appetite Objective: Vital Signs Temp Pulse Resp BP Pulse Ox 37.2 C 74 16 136/65 H 93 10/14/17 08:00 10/14/17 08:00 10/14/17 08:00 10/14/17 08:00 10/14/17 09:31 Laboratory Results 10/14/17 04:25 10/14/17 04:25 10/13/17 10/14/17 10/15/17 05:59 05:59 05:59 Intake Total 500 950 450 Output Total 525 1005 Balance -25 -55 450 - Physical Exam Constitutional: no apparent distress, appears nourished, not in pain Eyes: PERRL Ears, Nose, Mouth, Throat: hearing normal Cardiovascular: regular rate and rhythym Respiratory: no respiratory distress Gastrointestinal: normoactive bowel sounds Skin: warm, No normal color (Pale) Neurologic: AAOx3 Psychiatric: interacting appropriately, not anxious ICD10 Worksheet Patient Problems: Problems Problem Status Onset Fall from chair Acute Fracture of femoral neck, right Acute Injury of right hip Acute Hypertensive urgency Acute
--- NOTE | 2017-10-14 14:24 | ASMTCMCOM ---
CM Note CM Note Notes: Pt s/p surgery for R hip fx. SNF recommended. Discussed SNF options with pt and daughter in law, Sharon Hamilton [phone]. [facility] and [facility] were their choices. Referrals sent, all accepted. [facility] first choice.Dtr in law informed. Pt's 3rd midnight is tonight, january d/c tomorrow if medically cleared. Date Signed: 10/14/2017 02:24 PM Electronically Signed By:ROBERT Murphy
--- NOTE | 2017-10-14 16:57 | ASMTCMCOM ---
CM Note CM Note Notes: Received call from Jorge at [facility]. She is rescinding her acceptance of pt at as she has residents in the hospital and they have priority coming back to rehab. Informed pt and dtr in law. Pt was also accepted at [facility]. Date Signed: 10/14/2017 04:56 PM Electronically Signed By:ROBERT Murphy
[2017-10-15] MEDS: LEVOTHYROXINE 100 MCG TAB PO SCH (04:29)
[2017-10-15 05:39] LABS: PLATELET COUNT 134 10^3/uL (150-400)
[2017-10-15 07:40] VITALS: RESP 16
--- NOTE | 2017-10-15 07:40 | SOAPPROG ---
SOAP Progress Note Assessment/Plan: Assessment: Postoperative day 2 status post Right hip valgus impacted femoral neck fracture percutaneous screw fixation Plan: Partial weight-bearin%, with assist. PT/OT Analgesics /muscle relaxants as needed. No NSAIDs. DVT prophylaxis: Lovenox 40 mg daily x4 weeks Incentive spirometry 10 times per hour Disposition: To subacute rehab/detention facility today or tomorrow pending medical clearance. 10/14/17 07:48 10/15/17 07:37 Subjective: No acute events overnight; however, did not sleep well which she attributes to her SILVIA. Pain well controlled in bed. Participated cooperatively in physical therapy yesterday. Some difficulty putting weight on her right lower extremity. Has not had a bowel movement yet. On Metamucil. Denies fevers chills nausea vomiting chest pain shortness of breath numbness or tingling. Objective: Vital Signs Temp Pulse Resp BP Pulse Ox 37.1 C 76 19 130/56 H 92 10/15/17 04:00 10/15/17 04:00 10/15/17 04:00 10/15/17 04:00 10/15/17 04:00 Laboratory Results 10/15/17 04:21 10/15/17 04:21 10/14/17 10/15/17 10/16/17 05:59 05:59 05:59 Intake Total 950 650 Output Total 1005 600 Balance -55 50 Alert and oriented x3 no acute distress Easy nonlabored breathing Mild thigh swelling. Compartments soft compressible. No pain. Small blistering around Tegaderm edges. Tegaderm and gauze removed. Steri- Strips and incision clean dry and intact. No erythema drainage or signs of infection Calf Soft and nontender Sensation intact to light touch from L3-S1 Motor intact to EHL FHL tibialis anterior and gastrocsoleus Palpable DP PT pulses - Time Spent With Patient Time Spent With Patient: 15 - Pending Discharge Pending Discharge Within 24 Hours: Yes Pending Discharge Date: 10/15/17 Pending Discharge Time: 11:00 ICD10 Worksheet Patient Problems: Problems Problem Status Onset Fall from chair Acute Fracture of femoral neck, right Acute Injury of right hip Acute Hypertensive urgency Acute
--- NOTE | 2017-10-15 09:20 | HOSPPROG ---
Hospitalist Progress Note Assessment/Plan: 82y female with hip pain after fall. First encounter, chart reviewed. #Hip fx Status post right hip screw fixation doing great #Hx SILVIA cont CPAP #acute blood loss anemia in the setting of recent surgery # hypoxemia O2 sats on room air are 85% #Hyponatremia follow possibly related to HCTZ , this is on hold improved #HTN Blood pressure stable #Leukocytosis resolved 2/2 fracture likely #Dispo dc to SNF, hay removal, f/u with Dr Lackey Subjective: Stephanie is excited about dc and looking forward to rehab. Objective: Vital Signs Temp Pulse Resp BP Pulse Ox 37.0 C 73 16 143/59 H 90 L 10/15/17 07:39 10/15/17 07:39 10/15/17 07:39 10/15/17 07:39 10/15/17 07:39 Laboratory Results 10/15/17 04:21 10/15/17 04:21 10/14/17 10/15/17 10/16/17 05:59 05:59 05:59 Intake Total 950 650 Output Total 1005 600 Balance -55 50 - Physical Exam Constitutional: no apparent distress, appears nourished, not in pain Eyes: PERRL Ears, Nose, Mouth, Throat: hearing normal Cardiovascular: regular rate and rhythym Respiratory: no respiratory distress Genitourinary: hay in urethra Skin: warm Musculoskeletal: generalized weakness Neurologic: AAOx3 Psychiatric: interacting appropriately, not anxious ICD10 Worksheet Patient Problems: Problems Problem Status Onset Fall from chair Acute Fracture of femoral neck, right Acute Injury of right hip Acute Hypertensive urgency Acute
[2017-10-15] MEDS: PSYLLIUM METAMUCIL 1 PKT PO SCH (09:58)
[2017-10-15] MEDS: METOPROLOL SUCCINATE XR 50 MG TAB PO SCH (09:59)
[2017-10-15] MEDS: LOSARTAN POTASSIUM 50 MG TAB PO SCH (10:00)
[2017-10-15] MEDS: ATORVASTATIN CALCIUM 20 MG TAB PO SCH (10:00)
[2017-10-15] MEDS: ENOXAPARIN 40 MG/0.4 ML SYR SC SCH (10:01)
[2017-10-15] MEDS: SENNOSIDES/DOCUSATE SODIUM TAB PO SCH (10:01)
[2017-10-15] MEDS: DESVENLAFAXINE SUCCINATE PO SCH (10:02)
--- NOTE | 2017-10-15 10:35 | PDIAF ---
- Diagnosis Diagnosis: femoral neck fx s/p nail fixation, anemia, hyponatremia Code Status: Full Code - Medication Management Discharge Medications: Medications to Continue on Transfer Atorvastatin Calcium [Lipitor 20 mg (*)] 20 mg PO DAILY 01/07/17 [Last Taken ] Desvenlafaxine Succinate [Pristiq] 100 mg PO DAILY 01/07/17 [Last Taken 10/12/17 ] Levothyroxine [Synthroid 100 mcg (*)] 100 mcg PO DAILY06 01/07/17 [Last Taken ] Metoprolol Succinate Xr [Toprol Xl 100 mg (*)] 100 mg PO DAILY #30 tab 01/08/17 [Last Taken 10/12/17] Hydralazine HCl [Apresoline 100 mg] 100 mg PO TID 10/12/17 [Last Taken 10/12/17 16:00] Losartan/Hydrochlorothiazide [Hyzaar 100-25 Tablet] 1 each PO DAILY 10/12/17 [ Last Taken 10/12/17] Acetaminophen [Tylenol 325mg (*)] 650 mg PO Q4HRS PRN tab 10/15/17 [Last Taken Unknown] Enoxaparin [Lovenox 40 MG (*)] 40 mg SC DAILY #27 syr 10/15/17 [Last Taken Unknown] Polyethylene Glycol 3350 [Miralax 17 gm (*)] 17 gm PO DAILY PRN pkt 10/15/17 [ Last Taken Unknown] Sennosides/Docusate Sodium [Senokot-S] 1 - 2 tab PO BID tab 10/15/17 [Last Taken Unknown] oxyCODONE/APAP 5/325 [Percocet 5/325 (*)] 1 - 2 tab PO Q4HRS PRN tab 10/15/17 [ Last Taken Unknown] Discharge Medications: Refer to the Discharge Home Medication list for PRN reason. PICC Care - Routine: N/A - Orders Services needed: Physical Therapy, Occupational Therapy Diet Recommendation: no restrictions on diet Diet Texture: Regular Texture Diet Activity/Weight Bearing Restrictions: 50 % partial weight bearing Additional: patient had postop anemia, follow every 3 days to be stability. also , had some hyponatremia, Na on dc was 131, we held her HCTZ. will be resumed at me from hospital. Set up an appt for f/u care with Dr Lackey in 2 weeks. Continue lovenox for a total of 4 weeks. - Labs/Radiology BMP Date: 10/18/16 (q 3 days till stable) HCT/HGB Date: 10/18/16 (q 3 days till stable) - Follow Up Care Current Providers and Referrals: ANUPAM CARVALHO [Other] - As per Instructions Sukumar Lackey MD [Medical Doctor] -
--- NOTE | 2017-10-15 11:29 | ASMTCMCOM ---
CM Note CM Note Notes: Spoke w/pt, she chooses [facility], [place] at notified. Date Signed: 10/15/2017 11:29 AM Electronically Signed By:Khushbu Hicks RN
[2017-10-15 12:38] VITALS: BP 113/56; PULSE 116; TEMP 100.2; O2SAT 91
--- NOTE | 2017-10-15 14:42 | GDS ---
[f rep st] DISCHARGE SUMMARY DISCHARGE DIAGNOSES: 1. Hip fracture. 2. History of obstructive sleep apnea. 3. Acute blood loss anemia. 4. Hypoxemia. 5. Hyponatremia. 6. Hypertension. 7. Leukocytosis. CONSULTATIONS: During her stay, Dr. Lackey. BRIEF HISTORY: The patient is an 82-year-old female with a history of hypertension and hyponatremia, as well as obstructive sleep apnea. She frequently falls asleep during the day. She was sitting in the chair, slid off it and hit her hip as well as her head, and woke up immediately. She complained of hip pain and was noted to have a hip fracture. She was seen and evaluated by Dr. Lackey, and on , she had a right hip percutaneous screw fixation. She has done extremely well in the postop setting. The plan is for her to go to rehab today. HOSPITAL COURSE: 1. Right hip fracture: She is status post right screw fixation, doing quite well. 2. Obstructive sleep apnea: CPAP. 3. Hypoxemia: This is actually resolved today. 4. Hyponatremia: Sodium is improved today. 5. Hypertension: Blood pressure is stable. 6. Leukocytosis: Secondary to an acute fracture. DISCHARGE CONDITION: Stable. Vital signs: Blood pressure is 143/59, heart rate is 73, respiratory rate is 16, O2 sat's in room air 90%, temperature 37 degrees Celsius. MEDICATIONS AT DISCHARGE: Please see the EMR. DISCHARGE INSTRUCTIONS: 1. Continue Lovenox for next 4 weeks. 2. To follow up with Dr. Lackey. 3. Partial weightbearing to her right lower extremity. 4. To follow closely her hemoglobin and hematocrit, as well as her sodium levels. Greater than 30 minutes discharging and coordinating her care. /[id number]/MODL
== END 2017-10-15 17:15 | DRG 481 ==
LOC: F3E 21:10 → F3N 10-13 14:58
PROVIDERS: ADMIT Internal Medicine; ATTEND Internal Medicine
PROC: 0QH634Z Insertion of Internal Fixation Device into Right Upper Femur, Percutaneous Approach (ICD-10-PCS; principal; 2017-10-13 14:30)
DX: S72.001A Fracture of unspecified part of neck of right femur, initial encounter for closed fracture (principal); W07.XXXA Fall from chair, initial encounter; Y92.030 Kitchen in apartment as the place of occurrence of the external cause; E87.1 Hypo-osmolality and hyponatremia; R09.02 Hypoxemia; I10 Essential (primary) hypertension; G47.33 Obstructive sleep apnea (adult) (pediatric); F32.9 Major depressive disorder, single episode, unspecified; E03.9 Hypothyroidism, unspecified; E78.5 Hyperlipidemia, unspecified
CPT/HCPCS: 96374; 97116-GP; 97162-GP; 97166-GO; 97530-GP; C1713; C1769; G8978-GP-CK; G8979-GP-CJ; G8987-GO-CK; G8988-GO-CJ; J0171; J0360; J0690; J1650; J2370; J2405; J2704; J3010

== ENCOUNTER → 2018-05-13 | Outpatient (CLI) | payer OTHER, MEDICARE | LOC: SUPIMAGING 16:41 | PROVIDERS: ATTEND Nurse Practitioner | DX: M25.551 Pain in right hip (principal); M25.561 Pain in right knee; M25.531 Pain in right wrist; Z91.81 History of falling; M16.11 Unilateral primary osteoarthritis, right hip; M17.11 Unilateral primary osteoarthritis, right knee | CPT/HCPCS: 73110-PN; 73502-PN; 73564-PN ==

== ENCOUNTER 2018-06-10 17:18 | Inpatient (IN) | payer OTHER, MEDICARE ==
--- NOTE | 2018-06-10 18:14 | EDPHY ---
H & P Stated Complaint: wt loss /saw internal medicine friday/dx unbilical hernia Time Seen by Provider: 06/10/18 18:14 - Personal History Current Tetanus Diphtheria and Acellular Pertussis (TDAP): Yes - Medical/Surgical History Hx Asthma: No Hx Chronic Respiratory Disease: No Hx Diabetes: No Hx Cardiac Disease: Yes Hx Renal Disease: No Hx Cirrhosis: No Hx Alcoholism: No Hx HIV/AIDS: No Hx Splenectomy or Spleen Trauma: No Other PMH: HTN, hyperlipidemia, osteoporosis. Sees Dr. Bernabe Sorensen., SILVIA, - Social History Smoking Status: Former smoker Constitutional: Initial Vital Signs Temperature (C) 37.3 C 06/10/18 17:24 Heart Rate 100 06/10/18 17:24 Respiratory Rate 18 06/10/18 17:24 Blood Pressure 101/66 06/10/18 17:24 O2 Sat (%) 96 06/10/18 17:24 O2 Delivery Mode Room Air Allergies/Adverse Reactions: scallops Allergy (Verified 06/10/18 17:22) Vomiting Home Medications: Medication Instructions Recorded Desvenlafaxine Succinate [Pristiq] 100 mg PO DAILY 01/07/17 Levothyroxine [Synthroid 100 mcg 100 mcg PO DAILY06 01/07/17 (*)] Metoprolol Succinate Xr [Toprol Xl 100 mg PO DAILY #30 tab 01/08/17 100 mg (*)] Acetaminophen [Tylenol 325mg (*)] 650 mg PO Q4HRS PRN tab 10/15/17 Cholecalciferol Vit D3 [Vitamin D3 1,000 units PO DAILY 06/10/18 (*)] Losartan Potassium 100 mg PO DAILY 06/10/18 Mirabegron [Myrbetriq] 25 mg PO DAILY 06/10/18 hydrALAZINE [Apresoline 50 mg (*)] 50 mg PO BID 06/10/18 Medical Decision Making ED Course/Re-evaluation: CHIEF COMPLAINT: Progressive weakness at home HISTORY OF PRESENT ILLNESS: Last November this patient had a hip pending on the right. She was in [facility] rehab and did quite well post rehab and was discharged home. Over the last several months and she even dates that back to her discharge she has been getting worse and worse regarding her ability to ambulate. She has known severe central sleep apnea and has narcolepsy but additionally she is unable to even ambulate with her walker at this time. She is feels generally too weak. She denies any specific pain in the right hip. She denies any fevers or chills. She denies any urinary symptoms. She does have helpers at her house. When she was discharged from rehab she was able ambulate without a walker. She absolutely has been unable to get up stairs with any efficiency over the last couple weeks. REVIEW OF SYSTEMS: A comprehensive 10 system review of systems is otherwise negative aside from elements mentioned in the history of present illness and medical decision making. PHYSICAL EXAM: HR, BP, O2 Sat, RR. Temp noted General Appearance: Alert, well hydrated, appropriate, and non-toxic appearing. Head: Atraumatic without scalp tenderness or obvious injury Eyes: Pupils equal, round, reactive to light and accommodation, EOMI, no trauma , no injection. Ears: Clear bilaterally, no perforation, normal landmarks Nose: Atraumatic, no rhinorrhea, clear. Throat: There is no erythema or exudates, no lesions, normal tonsils, mucus membranes moist. Neck: Supple, 2+ carotid upstroke, nontender, no lymphadenopathy. Respiratory: No retractions, no distress, no wheezes, and no accessory muscle use. Lungs are clear to auscultation bilaterally. Cardiovascular: Regular rate and rhythm, no murmurs, rubs, or gallops. Bilateral carotid, radial, dorsalis pedis, and posterior tibial pulses intact. Good capillary refill all extremities. Gastrointestinal: Abdomen is soft, nontender, non-distended, no masses, no rebound, no guarding, no peritoneal signs. Musculoskeletal: Normal active ROM of all extremities, atraumatic. Neurological: Alert, appropriate, and interactive. The patient has normal DTRs and non-focal cranial nerves, motor, sensory, and cerebellar exam. Skin: No rashes, good turgor, no nodules on palpation. Past medical history: Significant comorbidities including severe central sleep apnea Past surgical history: Right hip pinning Family history: Noncontributory Social history: , retired, lives at home in her own house and has helpers. DIFFERENTIAL DIAGNOSIS: Includes but is not limited to: Infectious cause for weakness, musculoskeletal cause, hip pain on the right, poor oral in p.o. Intake MEDICAL DECISION MAKING: This patient has progressive weakness and essentially failure to thrive. She is more more reliant on her help. She is no longer able to ambulate with her walker. She certainly can use stairs which she has in her house. She felt quite good after being discharged from rehab but is also not eating and drinking very well week. She has lost 4 lb in 2 days. She is quite concerned about this. Laboratory studies are pending. I will admit this patient for PT OT evaluation potentially placement in a higher level of care until her weakness resolves. 19:47 Spoke with hospitalist service. Dr. Gonsales accepts admission for weakness , failure to thrive. - Data Points Laboratory Results: Laboratory Results 06/10/18 18:40 06/10/18 18:40 06/10/18 06/10/18 18:40 18:40 WBC 6.84 10^3/uL 10^3/uL (3.80-9.50) RBC 4.07 10^6/uL L 10^6/uL (4.18-5.33) Hgb 12.4 g/dL L g/dL (12.6-16.3) Hct 37.0 % L % (38.0-47.0) MCV 90.9 fL fL (81.5-99.8) MCH 30.5 pg pg (27.9-34.1) MCHC 33.5 g/dL g/dL (32.4-36.7) RDW 13.6 % % (11.5-15.2) Plt Count 297 10^3/uL 10^3/uL (150-400) MPV 9.0 fL fL (8.7-11.7) Neut % (Auto) 64.6 % % (39.3-74.2) Lymph % (Auto) 17.8 % % (15.0-45.0) Lander % (Auto) 16.4 % H % (4.5-13.0) Eos % (Auto) 0.4 % L % (0.6-7.6) Baso % (Auto) 0.4 % % (0.3-1.7) Nucleat RBC Rel Count 0.0 % % (0.0-0.2) Absolute Neuts (auto) 4.41 10^3/uL 10^3/uL (1.70-6.50) Absolute Lymphs (auto) 1.22 10^3/uL 10^3/uL (1.00-3.00) Absolute Monos (auto) 1.12 10^3/uL H 10^3/uL (0.30-0.80) Absolute Eos (auto) 0.03 10^3/uL 10^3/uL (0.03-0.40) Absolute Basos (auto) 0.03 10^3/uL 10^3/uL (0.02-0.10) Absolute Nucleated RBC 0.00 10^3/uL 10^3/uL (0-0.01) Immature Gran % 0.4 % % (0.0-1.1) Immature Gran # 0.03 10^3/uL 10^3/uL (0.00-0.10) Sodium 132 mEq/L L mEq/L (135-145) Potassium 4.0 mEq/L mEq/L (3.3-5.0) Chloride 100 mEq/L mEq/L (97-110) Carbon Dioxide 22 mEq/l mEq/l (22-31) Anion Gap 10 mEq/L mEq/L (8-16) BUN 26 mg/dL H mg/dL (7-23) Creatinine 0.9 mg/dL mg/dL (0.6-1.0) Estimated GFR 60 Glucose 89 mg/dL mg/dL (70-100) Calcium 9.2 mg/dL mg/dL (8.5-10.4) Medications Given: Discontinued Medications Sodium Chloride (Ns) 1,000 mls @ 0 mls/hr IV EDNOW ONE; Wide Open PRN Reason: Protocol Stop: 06/10/18 18:30 Last Admin: 06/10/18 18:42 Dose: 1,000 mls Departure - Departure Disposition: [facility] Inpatient Acute Clinical Impression: Weakness, Failure to thrive in adult Condition: Fair Report Scribed for: Jackson Pat Report Scribed by: Catherine Holguin Date of Report: 06/10/18 Time of Report: 20:38
[2018-06-10] MEDS ORDERED: NS 1,000 ML IV ONE (18:29)
[2018-06-10 18:45] LABS: PLATELET COUNT 297 10^3/uL (150-400)
[2018-06-10] MEDS ORDERED: ONDANSETRON 4 MG/2 ML VIAL IVP PRN (22:19)
[2018-06-10] MEDS ORDERED: ONDANSETRON DISINTEGRATING 4 MG TAB PO PRN (22:19)
[2018-06-10] MEDS ORDERED: ACETAMINOPHEN 325 MG TAB PO PRN (22:19)
--- NOTE | 2018-06-10 23:31 | PDGENHP ---
History and Physical - Chief Complaint Weight loss, weakness - History of Present Illness 82 yo F w/ hx of depression, HTN, and SILVIA presents with failure to thrive. She tells me she has lost about 10 lbs in the last month. She has had a poor appetite and gets full easily. She denies dysphagia, abdominal pain, and diarrhea. Additionally, she has been growing progressively weak. She now has a difficult time getting around and climbing stairs. Her weakness is generalized and sounds related to deconditioning. She denies any symptoms of acute infection or illness. She denies chest pain with ambulation. Through the course of our conversation the patient became quite tearful. She tells me she is "fearful of the future". She thinks her depression medication may no longer be working. She is concerned about needing to leave her children' s home soon and move to an assisted living facility. Case discussed with Dr. Gonsales; records reviewed in EMR. History Information - Allergies/Home Medication List Allergies/Adverse Reactions: scallops Allergy (Verified 06/10/18 17:22) Vomiting Home Medications: Desvenlafaxine Succinate [Pristiq] 100 mg PO DAILY 01/07/17 [Last Taken 10/12/17 ] Levothyroxine [Synthroid 100 mcg (*)] 100 mcg PO DAILY06 01/07/17 [Last Taken ] Cholecalciferol Vit D3 [Vitamin D3 (*)] 1,000 units PO DAILY 06/10/18 [Last Taken Unknown] Losartan Potassium 100 mg PO DAILY 06/10/18 [Last Taken Unknown] Mirabegron [Myrbetriq] 25 mg PO DAILY 06/10/18 [Last Taken Unknown] hydrALAZINE [Apresoline 50 mg (*)] 50 mg PO BID 06/10/18 [Last Taken Unknown] I have personally reviewed and updated: family history, medical history - Past Medical History hypertension Additional medical history: SILVIA. Depression - Surgical History Additional surgical history: R hip fixation 10/09 - Family History Additional family history: Asked, denies - Social History Smoking Status: Former smoker Review of Systems Review of Systems: ROS: 10pt was reviewed & negative except for what was stated in HPI & below Physical Exam Physical Exam: Temp Pulse Resp BP Pulse Ox 36.7 C 99 17 111/72 95 06/10/18 21:06 06/10/18 21:06 06/10/18 21:06 06/10/18 21:06 06/10/18 21:06 Constitutional: no apparent distress, not in pain Eyes: PERRL, EOMI Ears, Nose, Mouth, Throat: moist mucous membranes, no oral mucosal ulcers Cardiovascular: regular rate and rhythym, no murmur, rub, or gallop Respiratory: no respiratory distress, clear to auscultation Gastrointestinal: normoactive bowel sounds, soft, non-tender abdomen Skin: warm, normal color Musculoskeletal: full muscle strength, no muscle tenderness Neurologic: AAOx3, CN II-XII Intact Psychiatric: interacting appropriately, not anxious Lab Data & Imaging Review 06/10/18 18:40 06/10/18 18:40 WBC 6.84 10^3/uL (3.80-9.50) 06/10/18 18:40 RBC 4.07 10^6/uL (4.18-5.33) L 06/10/18 18:40 Hgb 12.4 g/dL (12.6-16.3) L 06/10/18 18:40 Hct 37.0 % (38.0-47.0) L 06/10/18 18:40 MCV 90.9 fL (81.5-99.8) 06/10/18 18:40 MCH 30.5 pg (27.9-34.1) 06/10/18 18:40 MCHC 33.5 g/dL (32.4-36.7) 06/10/18 18:40 RDW 13.6 % (11.5-15.2) 06/10/18 18:40 Plt Count 297 10^3/uL (150-400) 06/10/18 18:40 MPV 9.0 fL (8.7-11.7) 06/10/18 18:40 Neut % (Auto) 64.6 % (39.3-74.2) 06/10/18 18:40 Lymph % (Auto) 17.8 % (15.0-45.0) 06/10/18 18:40 Licking % (Auto) 16.4 % (4.5-13.0) H 06/10/18 18:40 Eos % (Auto) 0.4 % (0.6-7.6) L 06/10/18 18:40 Baso % (Auto) 0.4 % (0.3-1.7) 06/10/18 18:40 Nucleat RBC Rel Count 0.0 % (0.0-0.2) 06/10/18 18:40 Absolute Neuts (auto) 4.41 10^3/uL (1.70-6.50) 06/10/18 18:40 Absolute Lymphs (auto) 1.22 10^3/uL (1.00-3.00) 06/10/18 18:40 Absolute Monos (auto) 1.12 10^3/uL (0.30-0.80) H 06/10/18 18:40 Absolute Eos (auto) 0.03 10^3/uL (0.03-0.40) 06/10/18 18:40 Absolute Basos (auto) 0.03 10^3/uL (0.02-0.10) 06/10/18 18:40 Absolute Nucleated RBC 0.00 10^3/uL (0-0.01) 06/10/18 18:40 Immature Gran % 0.4 % (0.0-1.1) 06/10/18 18:40 Immature Gran # 0.03 10^3/uL (0.00-0.10) 06/10/18 18:40 Sodium 132 mEq/L (135-145) L 06/10/18 18:40 Potassium 4.0 mEq/L (3.3-5.0) 06/10/18 18:40 Chloride 100 mEq/L (97-110) 06/10/18 18:40 Carbon Dioxide 22 mEq/l (22-31) 06/10/18 18:40 Anion Gap 10 mEq/L (8-16) 06/10/18 18:40 BUN 26 mg/dL (7-23) H 06/10/18 18:40 Creatinine 0.9 mg/dL (0.6-1.0) 06/10/18 18:40 Estimated GFR 60 18 18:40 Glucose 89 mg/dL (70-100) 06/10/18 18:40 Calcium 9.2 mg/dL (8.5-10.4) 06/10/18 18:40 Assessment & Plan Assessment: 82 yo F w/ HTN, depression, and SILVIA presents with failure to thrive. Plan: 1. Failure to thrive - I suspect this is multifactorial from deconditioning and poorly controlled depression. The patient was tearful throughout our conversation and tells me she is "fearful of the future". She has lost 10 lbs in the last month and has poor appetite. She denies any symptoms suggestive of acute illness and her work-up has been otherwise unremarkable. - Will check TSH, B12 - PT/OT/CM evaluations - Dietary consult placed 2. Depression - This seems poorly controlled and I suspect may be driving much of her presentation. She takes desvenlafaxine as an outpatient but the tells me this may no longer be working. - Recommend outpatient follow-up, she would be a good candidate for mirtazapine but this would be best managed in the outpatient setting 3. HTN - Continue home medications pending reconciliation 4. SILVIA - CPAP Diet - Regular Code - Full Ppx - LMWH Dispo - Admit under observation status
[2018-06-11 05:39] LABS: PLATELET COUNT 284 10^3/uL (150-400)
[2018-06-11] MEDS ORDERED: METOPROLOL SUCCINATE XR 100 MG TAB PO SCH (09:00)
[2018-06-11] MEDS ORDERED: LEVOTHYROXINE 50 MCG TAB PO SCH (09:00)
[2018-06-11] MEDS: hydrALAZINE 25 MG TAB PO SCH ×2 (10:42→20:15)
[2018-06-11] MEDS: LOSARTAN POTASSIUM 50 MG TAB PO SCH (10:42)
[2018-06-11] MEDS: METOPROLOL SUCCINATE XR 50 MG TAB PO SCH (10:43)
[2018-06-11] MEDS: ENOXAPARIN 40 MG/0.4 ML SYR SC SCH (10:43)
[2018-06-11] MEDS: CHOLECALCIFEROL VIT D3 1,000 UNITS TAB PO SCH (10:43)
[2018-06-11] MEDS ORDERED: IOPAMIDOL (ISOVUE-300) 100 ML BTL ONE (12:56)
[2018-06-11 13:00] LABS: CREATINE KINASE 38 IU/L (0-156)
[2018-06-11] MEDS: LEVOTHYROXINE 125 MCG TAB PO SCH (13:53)
--- NOTE | 2018-06-11 16:05 | HOSPPROG ---
Hospitalist Progress Note Assessment/Plan: Assessment: 82-year-old female presents with acutely worsening generalized weakness resulting in inability to complete activities of daily living Plan 1. Generalized weakness. Acute on chronic, new problem this provider, further workup indicated. Most likely multifactorial including muscle loss from poor oral intake and resultant weight loss plus undertreated hypothyroidism plus likely mood component -check inflammatory markers to rule out underlying inflammatory autoimmune process -engage patient with physical and occupational therapy determine most appropriate level of care -check CT of chest abdomen pelvis to evaluate for GI malignancy 2. Early satiety. Acute, new problem this provider, further workup indicated. Resulting in poor appetite, poor oral intake, a 10 lb weight loss in 1 month, most likely contributing to generalized weakness above -discussed with Dr. Dionisio Blackburn, he agrees that EGD is appropriate, will make NPO after midnight for procedure tomorrow -dietary consult -get swallow eval and VFSS to ensure that there is not an upper oropharyngeal dysphagia component 3. Depression. Chronic, patient reports her mood has been progressively worsening despite ongoing use of generic venlafaxine -patient's daughter believes that brand name Pristiq is more effective than generic venlafaxine, I encouraged her to trial the brand name Pristiq if she believes that this would be a better choice and gauge effect -patient could certainly initiate concomitant mirtazapine to aid in sleep as well as appetite stimulation and mood stabilization, but I would recommend making the above-mentioned adjustment prior to initiating a 2nd agent so that they are able to determine which agent has the desired effect 4. Hypothyroidism. Acute worsening of chronic condition, the patient reports that she is adhering to her home dosage of 100 mcg daily and she is taking it properly -discussed with the patient and her daughter, progressively worsening hypothyroidism could certainly be contributing to issues outlined above -up titrate levothyroxine to 125 mcg daily and recommend rechecking TSH in 4 weeks 5. SILVIA. Chronic, patient reports adherence to her CPAP 6. Hematoma. Right hip, most likely postoperative and yet to resolve, does not appear to be infected with normal white blood cell count, afebrile 7. Right hip fracture. Chronic, status post nail procedure bilaterally September of [address] Sukumar Lackey -patient's range of motion in her right hip is extremely limited and she is angulated on physical exam -CT demonstrates right femoral head fragmentation with screws touching the right acetabulum -I have contacted Dr. Lackey's office to notify him of this issue and gauge whether there is any additional surgical orthopedic recommendation moving forward 8. Pulmonary nodules. Present on chest CT, personally interpreted, will require outpatient follow-up Diet. Regular as tolerated with nutritional supplements, NPO after midnight Prophylaxis. High risk patient, Lovenox 40, hold in a.m. Prior to EGD Code. Full Disposition. Anticipated discharge uncertain this time, upgraded to inpatient admission status for greater than 48 hr of anticipated care reasonable medical necessity including worsening generalized weakness resulting in inability to complete activities of daily living in inability to safely ambulate, requiring therapy evaluations, further workup as above, and most likely custodial facility. Discussed the patient's long-term living situation with her and her daughter-in- law, the patient would like to have a follow-up conversation privately regarding the possibility of assisted living facility moving forward, beyond the most appropriate level of rehab immediately after this hospitalization. I shared this with our caseworker protective services who will also follow up with the patient. I have discussed the patient's presentation with her primary care provider, Dr. Humberto Levine, who has recently seen the patient in the office, and shared with me that the patient is overall failing as an outpatient and she is high risk for further complications if the above issues are not completely addressed. Subjective: Patient reports that she is unable to get up and ambulate, she has no appetite Objective: Vital Signs Temp Pulse Resp BP Pulse Ox 36.8 C 71 19 110/45 L 95 06/11/18 11:21 06/11/18 11:21 06/11/18 11:21 06/11/18 11:21 06/11/18 11:21 Laboratory Results 06/11/18 12:05 06/11/18 05:05 06/10/18 06/11/18 06/12/18 05:59 05:59 05:59 Intake Total 1000 Output Total 250 Balance 1000 -250 - Physical Exam Constitutional: no apparent distress, not in pain, chronically ill appearing, No uncomfortable Cardiovascular: systolic murmur (1/6 at sternum and apex), No irregularly irregular, No tachycardia, No edema Respiratory: no respiratory distress, no rales or rhonchi, clear to auscultation Gastrointestinal: normoactive bowel sounds, soft, non-tender abdomen, no palpable masses, No distension Skin: other (Circular blanching area on the lateral right hip without any erythema, no induration, no particular tenderness) Neurologic: AAOx3, sensation intact bilaterally, weakness (3/5 motor strength right lower extremity on hip flexion), CN II-XII Intact Psychiatric: interacting appropriately, not anxious, not encephalopathic, thought process linear ICD10 Worksheet Patient Problems: Problems Problem Status Onset Failure to thrive in adult Acute Weakness Acute Fall from chair Acute Fracture of femoral neck, right Acute Hypertensive urgency Acute Injury of right hip Acute
[2018-06-11] MEDS: Mirabegron [Myrbetriq] 25 MG PO SCH (16:24)
[2018-06-11] MEDS: Desvenlafaxine Succinate [Pristiq] 100 MG PO SCH (16:24)
--- NOTE | 2018-06-11 16:52 | ASMTCMCOM ---
CM Note CM Note Notes: CM met with Pt, her vtoxfzfh-vw-fgg and reviewed chart for d/c planning. Pt is an 82 y/o female,who lives with her son, hzqcdezq-wo-pdf and their children, hospitalized due to weakness, failure to thrive. She has lost approx 10 lbs in the last month. She has a poor appetite and gets full easily. She is becoming progressively weak. She reports now having a hard time getting around and using stairs. Pt has a caregiver, Anita, 4 hours a week. Anita called [facility] to share concerns she had over how Pt's gutfzhjn-bl-sfa treats her. CM spoke with Pt about her gyaoelpg-tw-ocj privately. Pt stated that since her oldest granddaughter went to college this fall her yflfyqyq-sy-ify has been overly focused on her. She has been increasingly directive and intrusive, allowing the pt less autonomy in making decisions. Pt has decided that although she is very concerned that she'll become lonely she could better hold onto the relationship with her iflylqah-rq-eam if she lived in assisted living. Pt did speak of her hx of depression which she feels has been under control until recently. Her zrxcgrwu-ys-vnc blames her switch to a generic brand, but pt believes it is a result of her change in her physical/medical needs. Pt had some looseness in her associations, easily drifting into reminiscing, sharing stories both painful and joyful. She expressed great concern over losing that which is most important to her, her connection with her son and his family; she spoke of her lifelong susceptibility of feeling abandoned (since she was 7 y/o and learned her father was killed in WW11). She refers to her love of "turning ideas over" and hopes her assisted living will have residents who enjoy intellectual stimulation. Her son and jtrzsgwv-ah-wzd have looked at several assisted living facilities. The ones they liked were out of her fofana range. They will continue their search. Wherever the pt is d/elfego to it is highly probable that she will need to initially go to a SNF for rehab. She has been at [facility] before. Referrals are being sent out to [facility] and [facility]. Her children live in [place] and this would allow them to visit. CM will follow. D/C Plan: Anticipate SNF/Rehab Date Signed: 06/11/2018 04:51 PM Electronically Signed By:Valencia Goss
--- NOTE | 2018-06-11 21:05 | PDMN ---
Medical Necessity Medical necessity: Pt meets INPT criteria per MD as of 06/11/18 (est. LOS >2 MN for ongoing eval/mgmt of acutely worsening generalized weakness resulting in inability to complete ADLs, inability to safely ambulate, poor po intake, resultant weight loss, undertreated hypothyroidism, depression, acute early satiety with EGD pending, hx R hip fracture s/p surgery with orthopedic consult pending, SILVIA.
--- NOTE | 2018-06-11 21:40 | GCON ---
REFERRING PHYSICIAN: Bulmaro Zheng MD CHIEF COMPLAINT: Weight loss, early satiety, weakness. HISTORY OF PRESENT ILLNESS: I have been asked to see this very pleasant 82-year -old woman in consultation by Dr. Zheng for symptoms of early satiety and weight loss. The patient has a history of depression; hypertension; obstructive sleep apnea, on CPAP. She has had failure to thrive with difficulty eating over the last month or so. She has lost about 10 pounds in the last month. She has a very poor appetite with having early satiety and feeling full easily. She denies any specific dysphagia but does have some trouble swallowing food at times. She denies any abdominal discomfort or diarrhea. She has noticed no bright-red blood per rectum and has had no nausea and vomiting. She is progressively getting weak with shortness of breath and difficulty climbing stairs. She has a history of colonoscopy in the past with removal of polyps. She has no significant family history of colorectal cancer. During this hospitalization, she has had a CT scan of her chest and abdomen which were essentially unremarkable. There was some evidence of constipation on CT scan of the abdomen. She was also noted to be slightly hypothyroid with a TSH of 10.5. Asked to see patient for further evaluation. PAST MEDICAL HISTORY: Remarkable for hypertension, obstructive sleep apnea, depression, hypothyroidism SURGICAL HISTORY: Right hip fixation in September 2017. FAMILY HISTORY: Negative as it pertains to chief complaint. SOCIAL HISTORY: She is a former smoker, quit in 1962. Nondrinker. Lives with her son and dqklkpjl-pc-sfv. MEDICATIONS PRIOR TO ADMISSION: Include Pristiq, Synthroid, vitamin D3, losartan, Myrbetriq, and apresoline. ALLERGIES: Scallops. No medication allergies. REVIEW OF SYSTEMS: Negative for 10 systems other than mentioned in HPI. PHYSICAL EXAM: VITAL SIGNS: 154/68, heart rate of 66, 19 respiratory rate, 93 % on room air. 36.4 is her temperature. GENERAL: Elderly woman sitting in a chair in no acute distress. HEENT: Normocephalic, atraumatic. EOMI. Mucous membranes moist. NECK: Supple. No cervical lymphadenopathy. No thyromegaly. LUNGS: Clear. CARDIAC: Normal S1, S2. ABDOMEN: No hepatosplenomegaly. Nontender. Normal bowel sounds. EXTREMITIES: Stasis changes but no edema, no clubbing, no cyanosis. SKIN: Warm, dry, intact. NEURO: Nonfocal. PSYCH: Alert and oriented x3. LABORATORY DATA: Hemoglobin 12.4, hematocrit 37, platelets of 297. Serum chemistries: Serum sodium 135, potassium 4.1, chloride of 104, CO2 of 26, BUN of 22, creatinine of 0.8, glucose of 93. C-reactive protein was 46.8. TSH is 10.5. IMPRESSION: 82-year-old woman with failure to thrive, nonspecific symptoms of anorexia, weight loss. PLAN: We will proceed with diagnostic endoscopy to rule out significant gastritis, ulcer disease, gastric cancer. Recommendations: 1. N.p.o. after midnight. 2. Proceed with diagnostic endoscopy in the morning. I will follow with you. Thank you for allowing me to participate in the care of this patient. /[id number]/MODL MTDD
[2018-06-12] MEDS: LEVOTHYROXINE 125 MCG TAB PO SCH (04:23)
[2018-06-12] MEDS ORDERED: LEVOTHYROXINE 100 MCG TAB PO SCH (06:00)
[2018-06-12] MEDS ORDERED: LR 1,000 ML IV ONE (07:34)
--- NOTE | 2018-06-12 09:18 | PDANEPAE ---
ANE History of Present Illness egd for failure to thrive ANE Past Medical History - Cardiovascular History Hx Hypertension: Yes Hx Arrhythmias: No Hx Chest Pain: No Hx Coronary Artery / Peripheral Vascular Disease: No Hx CHF / Valvular Disease: No Hx Palpitations: No - Pulmonary History Hx COPD: No Hx Asthma/Reactive Airway Disease: No Hx Recent Upper Respiratory Infection: No Hx Oxygen in Use at Home: No Hx Sleep Apnea: Yes Sleep Apnea Screening Result - Last Documented: Positive - Endocrine History Hx Diabetes: No - Renal History Hx Renal Disorders: No - Liver History Hx Hepatic Disorders: No - Neurological & Psychiatric Hx Hx Neurological and Psychiatric Disorders: No ANE Review of Systems Review of Systems: ANE Patient History - Allergies Allergies/Adverse Reactions: scallops Allergy (Verified 06/10/18 17:22) Vomiting - Home Medications Home Medications: Desvenlafaxine Succinate [Pristiq] 100 mg PO DAILY 01/07/17 [Last Taken 10/12/17 ] Levothyroxine [Synthroid 100 mcg (*)] 100 mcg PO DAILY06 01/07/17 [Last Taken ] Cholecalciferol Vit D3 [Vitamin D3 (*)] 1,000 units PO DAILY 06/10/18 [Last Taken Unknown] Losartan Potassium 100 mg PO DAILY 06/10/18 [Last Taken Unknown] Mirabegron [Myrbetriq] 25 mg PO DAILY 06/10/18 [Last Taken Unknown] hydrALAZINE [Apresoline 50 mg (*)] 50 mg PO BID 06/10/18 [Last Taken Unknown] - NPO status NPO Since - Liquids (Date): 06/12/18 NPO Since - Liquids (Time): 00:00 NPO Since - Solids (Date): 06/12/18 NPO Since - Solids (Time): 00:00 - Smoking Hx Smoking Status: Former smoker ANE Labs/Vital Signs - Labs Result Diagrams: 06/11/18 12:05 06/11/18 05:05 - Vital Signs Blood Pressure: 160/80 Heart Rate: 62 Respiratory Rate: 16 O2 Sat (%): 96 Height: 154.94 cm Weight: 51.7 kg ANE Physical Exam - Airway Neck exam: FROM Mallampati Score: Class 1 Mouth exam: normal dental/mouth exam - Pulmonary Pulmonary: no respiratory distress - Cardiovascular Cardiovascular: regular rate and rhythym, no murmur, rub, or gallop - ASA Status ASA Status: II ANE Anesthesia Plan Anesthesia Plan: GA with mask
[2018-06-12] MEDS ORDERED: fentaNYL 100 MCG/2 ML INJ ONE (09:21)
[2018-06-12] MEDS ORDERED: PROPOFOL 200 MG/20 ML VIAL ONE (09:21)
[2018-06-12] MEDS ORDERED: MEPERIDINE 25 MG/0.5 ML AMP IVP PRN (10:03)
[2018-06-12] MEDS ORDERED: DEXAMETHASONE 4 MG/ML VIAL IVP PRN (10:03)
[2018-06-12] MEDS ORDERED: NALOXONE HCL 0.4 MG/ML INJ IVP PRN (10:03)
[2018-06-12] MEDS ORDERED: HYDROmorphONE/DILAUDID 2 MG/ML INJ IVP PRN (10:03)
[2018-06-12] MEDS ORDERED: PROMETHAZINE HCL 25 MG/ML INJ IVP PRN (10:03)
[2018-06-12] MEDS: CHOLECALCIFEROL VIT D3 1,000 UNITS TAB PO SCH (12:07)
[2018-06-12] MEDS: METOPROLOL SUCCINATE XR 50 MG TAB PO SCH (12:08)
[2018-06-12] MEDS: LOSARTAN POTASSIUM 50 MG TAB PO SCH (12:08)
[2018-06-12] MEDS: Desvenlafaxine Succinate [Pristiq] 100 MG PO SCH (12:09)
[2018-06-12] MEDS: Mirabegron [Myrbetriq] 25 MG PO SCH (12:10)
[2018-06-12] MEDS: hydrALAZINE 25 MG TAB PO SCH (13:25)
--- NOTE | 2018-06-12 14:32 | HOSPPROG ---
Hospitalist Progress Note Assessment/Plan: Assessment: 82-year-old female presents with acutely worsening generalized weakness resulting in inability to complete activities of daily living Plan 1. Generalized weakness and decreased p.o. Intake leading to weight loss * Probably multifactorial - hypothyroidism, borderline low B12, low blood pressure when she was on higher doses of hydralazine, probably a significant component of psychosocial dynamics * Extensive workup here - no need for further workup * Will treat was treatable and she will go to rehab and see how she does there * early satiety and weight loss * EGD and swallow evaluation are normal * will order celiac panel * depression * Continue her current antidepressant * borderline low b12 * will give a few IM injections * hypothyroidism * Synthroid increased to 125 mcg *SILVIA * Although patient does adhere to CPAP she has significant daytime sleepiness * She is being followed by [facility] * Hematoma. Right hip, most likely postoperative and yet to resolve, does not appear to be infected with normal white blood cell count, afebrile * Right hip fracture. Chronic, status post nail procedure bilaterally September of [address] Sukumar Lackey -patient's range of motion in her right hip is extremely limited and she is angulated on physical exam -CT demonstrates right femoral head fragmentation with screws touching the right acetabulum * Patient structure to follow up with Dr. Lackey outpatient * Pulmonary nodules. Present on chest CT, personally interpreted, will require outpatient follow-up Prophylaxis. High risk patient, Lovenox 40, Code. Full Disposition. * Will go to SNF tomorrow Subjective: Feels little better today. EGD did not show anything significant Objective: Vital Signs Temp Pulse Resp BP Pulse Ox 36.7 C 58 L 16 147/65 H 97 06/12/18 13:40 06/12/18 13:40 06/12/18 13:40 06/12/18 13:40 06/12/18 13:40 06/11/18 06/12/18 06/13/18 05:59 05:59 05:59 Intake Total 100 Output Total 500 200 Balance -500 -100 - Physical Exam Constitutional: no apparent distress, appears nourished, not in pain Eyes: anicteric sclera, EOMI Ears, Nose, Mouth, Throat: moist mucous membranes Cardiovascular: regular rate and rhythym Respiratory: no respiratory distress Gastrointestinal: normoactive bowel sounds, soft, non-tender abdomen, no palpable masses Skin: warm Neurologic: AAOx3 Psychiatric: interacting appropriately, not anxious, not encephalopathic, thought process linear ICD10 Worksheet Patient Problems: Problems Problem Status Onset Failure to thrive in adult Acute Weakness Acute Fall from chair Acute Fracture of femoral neck, right Acute Hypertensive urgency Acute Injury of right hip Acute
--- NOTE | 2018-06-12 16:20 | ASMTCMCOM ---
CM Note CM Note Notes: Spoke w/pt, she has been accepted by [facility] and [facility], pt wishes to go to [facility]. DC Plan: SNF/[facility] Rehab Date Signed: 06/12/2018 04:14 PM Electronically Signed By:Khushbu Hicks RN
[2018-06-12] MEDS: CYANO/VITAMIN B12 1000 MCG/ML VIAL IM SCH (17:45)
[2018-06-13] MEDS: LEVOTHYROXINE 125 MCG TAB PO SCH (05:43)
[2018-06-13] MEDS ORDERED: LEVOTHYROXINE 50 MCG TAB PO SCH (06:00)
[2018-06-13] MEDS: Desvenlafaxine Succinate [Pristiq] 100 MG PO SCH (09:51)
[2018-06-13] MEDS: CYANO/VITAMIN B12 1000 MCG/ML VIAL IM SCH (09:51)
[2018-06-13] MEDS: CHOLECALCIFEROL VIT D3 1,000 UNITS TAB PO SCH (09:51)
[2018-06-13] MEDS: Mirabegron [Myrbetriq] 25 MG PO SCH (09:52)
[2018-06-13] MEDS: METOPROLOL SUCCINATE XR 50 MG TAB PO SCH (09:53)
[2018-06-13] MEDS: ENOXAPARIN 40 MG/0.4 ML SYR SC SCH (09:54)
[2018-06-13] MEDS: LOSARTAN POTASSIUM 50 MG TAB PO SCH (09:54)
--- NOTE | 2018-06-13 16:31 | HOSPPROG ---
Hospitalist Progress Note Assessment/Plan: DIAGNOSES: * acute failure to thrive * worsening of chronic depression * generalized weakness multifactorial * weight loss due to anorexia with decreased appetite, negative GI workup * undertreated hypothyroidism likely is the cause of all of the above * multiple pulmonary nodules noted on CT scan incidentally, repeat CT scanning for follow-up indicated in 12 months * elevated C reactive protein of uncertain cause or significance, normal sedimentation rate * mild pyuria without symptoms, uncertain significance * chronic hypertension currently controlled on her usual medicines At this point the patient's symptoms do appear to be improving after a few days of increased thyroid therapy. It is possible that all of her presenting symptoms in terms of the failure to thrive, anorexia weight loss, depression etc are due to this. Is reasonable to consider just treating her with the ongoing higher dose of thyroid and see how she improves. I am unclear as to whether the high CRP blood test has any clinical significance but will repeat that and she should be followed for any signs of developing inflammatory or infectious illness. I do not see those now. In addition metoprolol can be a cause of depression, and if her symptoms of depression do not resolve with higher thyroid dose would consider tapering off of that medicine replacing with other blood pressure control medicine over time. PLANS: * Continue higher thyroid dose, recheck TSH in 6 weeks * Continue physical occupational therapy * Plan on probable assisted facility transfer tomorrow for rehabilitation for her failure to thrive gait instability and deconditioning * Recheck C reactive protein and UA at this time * Consider potential switched from metoprolol to other blood pressure medicine if her depression does not resolve thyroid therapy * Consider repeat CT scan in 12 months to reassess small lung nodules I had a very long discussion with patient about all of the above issues today at the bedside and answered all of her questions SUBJECTIVE: She says she feels somewhat better, is eating a little better and feels alert stroke stronger,more clear headed and alert Still weak and needing walker and assistance for ambulation OBJECTIVE Vitals reviewed: Stable without fever Director Women, my review: Exam: alert oriented skin warm dry color ok resps not labored lungs clear BSs heart regular abd soft nondistended nontender, bowel sounds present limbs warm, no edema iv site ok I reviewed her lab tests, I am not noticing that her CRP was fairly elevated and I am not clear on the cause of that or other relevance to all of the above at this time Objective: Vital Signs Temp Pulse Resp BP Pulse Ox 36.6 C 71 12 116/54 L 98 06/13/18 15:23 06/13/18 15:23 06/13/18 15:23 06/13/18 15:23 06/13/18 15:23 06/12/18 06/13/18 06/14/18 06:59 06:59 06:59 Intake Total 300 Output Total 500 1300 Balance -500 -1000 - Time Spent With Patient Time Spent with Patient: greater than 35 minutes Time Spent with Patient: Greater than 35 minutes spent on this patients care, greater than 50% of time spent counseling, educating, and coordinating care regarding the above mentioned plan. ICD10 Worksheet Patient Problems: Problems Problem Status Onset Failure to thrive in adult Acute Weakness Acute Fall from chair Acute Fracture of femoral neck, right Acute Hypertensive urgency Acute Injury of right hip Acute
[2018-06-14] MEDS: LEVOTHYROXINE 125 MCG TAB PO SCH (07:14)
[2018-06-14 08:37] VITALS: BP 145/65
[2018-06-14] MEDS: CYANO/VITAMIN B12 1000 MCG/ML VIAL IM SCH (09:03)
[2018-06-14] MEDS: Mirabegron [Myrbetriq] 25 MG PO SCH (09:03)
[2018-06-14] MEDS: Desvenlafaxine Succinate [Pristiq] 100 MG PO SCH (09:03)
[2018-06-14] MEDS: LOSARTAN POTASSIUM 50 MG TAB PO SCH (09:04)
[2018-06-14] MEDS: CHOLECALCIFEROL VIT D3 1,000 UNITS TAB PO SCH (09:04)
[2018-06-14] MEDS: METOPROLOL SUCCINATE XR 50 MG TAB PO SCH (09:04)
[2018-06-14] MEDS: ENOXAPARIN 40 MG/0.4 ML SYR SC SCH (09:04)
--- NOTE | 2018-06-14 11:02 | PDDCSUM ---
Discharge Summary Discharge Summary: DISCHARGE DIAGNOSES: * symptomatic hypothyroidism, undertreated at home * acute depression due to above * generalized weakness, gait instability, deconditioning, failure to thrive due to above * anorexia weight loss due to above * multiple pulmonary nodules on CT scan incidentally noted with recommendation for follow-up CT scan in 12 months * chronic hypertension PROCEDURES: CT scans of chest and abdomen: Incidentally noted small benign-appearing pulmonary nodules; incomplete fusion of previous left femoral neck and head fractures with hardware remaining in place HOSPITAL COURSE SUMMARY: This patient with a long history of depression and hypothyroidism, presented with worsening depression, anorexia, weight loss, weakness with falls and failure to thrive. The main finding in her initial evaluations that her TSH was elevated at 10.5. She was admitted the hospital here and treated with increased thyroxine dose and responded quite well to that. At this point she is eating notably better, feels much more alert, less depressed, and is starting to regain some strength. She does remain however fairly debilitated with deconditioning. She is felt stable for discharge to home. It is hoped that her symptoms will all resolve with correct replacement of her thyroid hormone. However if any of her symptoms continue and do not resolve she may need other assessment. If her depression continues it is potentially amenable to changing her blood pressure medicines as she is on a beta-temi. She is on chronic antihypertensive therapy Incidentally noted on a CT scan of her Chest are some pulmonary nodules that appear benign and/or small; radiology recommendation is for repeat CT scan in 12 months PENDING TEST RESULTS: None Repeat TSH should be ordered in 6 weeks and checked for titration of her replacement dose MEDICATION CHANGES: Increase in levothyroxine to 125 mcg; repeat TSH will be needed in 6 weeks FOLLOW-UP PLAN: [facility], current follow-up is with the geriatric staff there Greater than 35 minutes bedside and care coordination time today
--- NOTE | 2018-06-14 11:05 | PDIAF ---
- Diagnosis Diagnosis: Hypothyroidism undertreated, depression, deconditioning and weakness , weigh Code Status: Full Code - Medication Management Discharge Medications: Medications to Continue on Transfer Desvenlafaxine Succinate [Pristiq] 100 mg PO DAILY 01/07/17 [Last Taken 10/12/17 ] Metoprolol Succinate Xr [Toprol Xl 100 mg (*)] 100 mg PO DAILY #30 tab 01/08/17 [Last Taken 10/12/17] Cholecalciferol Vit D3 [Vitamin D3 (*)] 1,000 units PO DAILY 06/10/18 [Last Taken Unknown] Mirabegron [Myrbetriq] 25 mg PO DAILY 06/10/18 [Last Taken Unknown] hydrALAZINE [Apresoline 50 mg (*)] 50 mg PO BID 06/10/18 [Last Taken Unknown] Levothyroxine [Synthroid 125 mcg (*)] 125 mcg PO DAILY AT 6AM tab 06/14/18 [ Last Taken Unknown] Losartan Potassium [Cozaar 50 mg (*)] 100 mg PO DAILY tab 06/14/18 [Last Taken Unknown] Discharge Medications: Refer to the Discharge Home Medication list for PRN reason. - Orders Services needed: Registered Nurse, Certified Tongue Presser, [employer] , Physical Therapy, Occupational Therapy Diet Recommendation: no restrictions on diet Diet Texture: Regular Texture Diet, Thin Liquids, Meds Whole w/Liquids - Labs/Radiology Other Lab Name, Date and Time: TSH should be done in 6 weeks, July 29 - Follow Up Care Current Providers and Referrals: Sukumar Lackey MD [Medical Doctor] - follow up in 1 week NONE *PRIMARY CARE P,. [Unknown] - As per Instructions
--- NOTE | 2018-06-14 13:44 | ASMTDCNOTE ---
Case Management Discharge Discharge Order Complete? Answers: Yes Patient to Obtain Answers: Other Notes: Facility [facility] Medications Transport will Pick (Date 06/14/2018 03:00 PM & Time) Faxed Final Orders Answers: Yes Notes: via [employer] [facility] Notified Answers: No Discharge Comments Notes: CM confirmed patient discharge with [facility] [phone], transport is scheduled for 3pm. CM informed RN of 3pm cigar packer and picker (gave [phone] for report) and met with patient. IM signed and placed in back of chart. Patient denies any further CM/discharge questions. CM sent discharge plan, therapy notes, home meds to [facility] via [employer]. CM available to support if any further needs arise. Date Signed: 06/14/2018 01:44 PM Electronically Signed By:Lulu Nichols
--- NOTE | 2018-06-15 15:01 | POSTANESTH ---
Post Anesthetic Evaluation Cardiovascular Status: Normal, Stable Respiratory Status: Normal, Stable Level of Consciousness/Mental Status: Can Participate in Eval Pain Control: Adequate, Prn Tx Ordered Nausea/Vomiting Control: Adequate, Prn Tx Ordered Complications Possibly Related to Anesthesia: None Noted
--- NOTE | 2018-06-15 16:09 | ASDISCHSUM ---
Discharge Information Plan Status:SNF Medically Cleared to Leave:06/14/2018 Discharge Date:06/14/2018 03:14 PM D/C Disposition:[facility] Facility ADT D/C Disposition:[facility] Facility Projected Discharge Date:06/14/2018 03:00 PM Transportation at D/C:Other Discharge Delay Reason: Follow-Up Date:06/14/2018 03:00 PM Discharge Slot:2 - 12:01 pm - 18:00 pm Final Diagnosis:Hypothyroidism undertreated, depression, deconditioning, weakness Placement Information Referral Type:*Fdc/SNF Referral ID:[id number] Provider Name:[facility] Address 1:[address] Address 2: City:[place] Selection Factors: State:[place] Patient Contact Information Contact Name:VJ Relationship:Son Address:[address] [place]ARLEEN) [phone] Work Phone: City:[place] Alternate Phone: [facility]/Zip Code:[place] [address] Email: Financial Information Financial Class:Medicare Primary Plan Desc:MEDICARE INPATIENT Primary Plan Number:[id number] Secondary Plan Desc:AARP/MDR SUPPLEMENT Secondary Plan Number:[id number] Assessment Information [facility] JOSE ELIAS Progress Note CM Note CM Note Notes: JOSE ELIAS met with Pt, her hsufcafz-jc-btd and reviewed chart for d/c planning. Pt is an 82 y/o female,who lives with her son, mcyzxmvg-hn-fyp and their children, hospitalized due to weakness, failure to thrive. She has lost approx 10 lbs in the last month. She has a poor appetite and gets full easily. She is becoming progressively weak. She reports now having a hard time getting around and using stairs. Pt has a caregiver, Anita, 4 hours a week. Anita called [facility] to share concerns she had over how Pt's vootnmpr-bo-idi treats her. JOSE ELIAS spoke with Pt about her pzwrnvce-zd-ljf privately. Pt stated that since her oldest granddaughter went to college this fall her gunwjooc-vy-rgn has been overly focused on her. She has been increasingly directive and intrusive, allowing the pt less autonomy in making decisions. Pt has decided that although she is very concerned that she'll become lonely she could better hold onto the relationship with her cpqznkzl-uv-myt if she lived in assisted living. Pt did speak of her hx of depression which she feels has been under control until recently. Her xhuatdyv-js-ejr blames her switch to a generic brand, but pt believes it is a result of her change in her physical/medical needs. Pt had some looseness in her associations, easily drifting into reminiscing, sharing stories both painful and joyful. She expressed great concern over losing that which is most important to her, her connection with her son and his family; she spoke of her lifelong susceptibility of feeling abandoned (since she was 7 y/o and learned her father was killed in WW11). She refers to her love of "turning ideas over" and hopes her assisted living will have residents who enjoy intellectual stimulation. Her son and nftbdfdw-hy-xtm have looked at several assisted living facilities. The ones they liked were out of her fofana range. They will continue their search. Wherever the pt is d/elfego to it is highly probable that she will need to initially go to a SNF for rehab. She has been at [facility] before. Referrals are being sent out to [facility] and [facility]. Her children live in [place] and this would allow them to visit. CM will follow. D/C Plan: Anticipate SNF/Rehab Date Signed: 06/11/2018 04:51 PM Electronically Signed By:Valencia Goss [facility] Progress Note JOSE ELIAS Note JOSE ELIAS Note Notes: Spoke w/pt, she has been accepted by [facility] and [facility], pt wishes to go to [facility]. DC Plan: SNF/[facility] Rehab Date Signed: 06/12/2018 04:14 PM Electronically Signed By:Khushbu Hicks RN Case Management Discharge Plan Note Case Management Discharge Discharge Order Complete? Answers: Yes Patient to Obtain Answers: Other Notes: Facility [facility] Medic[facility] Transport will Pick (Date 06/14/2018 03:00 PM & Time) Faxed Final Orders Answers: Yes Notes: via [employer] Family Notified Answers: No Discharge Comments Notes: CM confirmed patient discharge with [facility] [phone], transport is scheduled for 3pm. CM informed RN of 3pm olive picker (gave [phone] for report) and met with patient. IM signed and placed in back of chart. Patient denies any further CM/discharge questions. CM sent discharge plan, therapy notes, home meds to [facility] via [employer]. CM available to support if any further needs arise. Date Signed: 06/14/2018 01:44 PM Electronically Signed By:Lulu Nichols Intervention Information Intervention Type:*Incorrect Registration Date of Service:06/11/2018 09:49 AM Patient Type:Inpatient Staff Member:HANNA Ramos, Leah Hours: Discipline: Severity: Comment: Intervention Type:*PAUL-Signed Date of Service:06/11/2018 03:04 PM Patient Type:Observation Staff Member:Denise Heredia Hours: Discipline: Severity: Comment:
--- NOTE | 2018-06-18 11:08 | GIREPORT ---
[facility] Surgical Services - Endoscopy Department Patient Name: Stephanie Deal Procedure Date: 06/12/2018 8:57 AM Patient Type: Inpatient Attending MD/ ER Physician: Dionisio Blackburn MD Procedure: Upper GI endoscopy Indications: Anorexia, Early satiety, Weight loss Providers: Dionisio Blackburn MD Medicines: General Anesthesia Complications: No immediate complications. Description of Procedure: After obtaining informed consent, the endoscope was passed under direct vision. Throughout the procedure, the patient's blood pressure, pulse, and oxygen saturations were monitored continuously. The Endoscope was intro duced through the mouth, and advanced to the second part of duodenum. [facility] er GI endoscopy was accomplished without difficulty. The patient tolerated th e procedure well. Moderate Sedation: GA Findings: The examined esophagus was normal. Biopsies were taken with a cold forc eps for histology. A small hiatal hernia was present. Patchy mild inflammation characterized by congestion (edema) and erythe ma was found in the gastric antrum. Biopsies were taken with a cold forcep s for histology. The examined duodenum was normal. Biopsies for histology were taken wit h a cold forceps for evaluation of celiac disease. Estimated Blood Loss: Estimated blood loss: none. Post Op Diagnosis: - Normal esophagus. Biopsied. - Small hiatal hernia. - Chronic gastritis. Biopsied. - Normal examined duodenum. Biopsied. Recommendation: - Await pathology results. - Resume regular diet. - No significant pathology found on upper endosopcy. Will follow up on biopsies. Will sign off please call for further questions. - Thank you for allowing me to participate in the care of your patient. Attending Participation: I personally performed the entire procedure. Dionisio Blackburn MD Dionisio Blackburn MD 06/12/2018 9:34:21 AM This report has been signed electronicallyStnicolas Blackburn MD Number of Addenda: 0 Note Initiated On: 06/12/2018 8:57 AM [email or web address]
== END 2018-06-14 15:14 | DRG 645 ==
LOC: INTOOBSV 19:47 → F3E 20:50 → OBSVTOIN 06-11 15:47
PROVIDERS: ADMIT Internal Medicine; ATTEND Internal Medicine
DX: E03.8 Other specified hypothyroidism (principal); E86.9 Volume depletion, unspecified; F32.9 Major depressive disorder, single episode, unspecified; R62.7 Adult failure to thrive; R63.0 Anorexia; R91.8 Other nonspecific abnormal finding of lung field; K44.9 Diaphragmatic hernia without obstruction or gangrene; I10 Essential (primary) hypertension; E78.5 Hyperlipidemia, unspecified; G47.33 Obstructive sleep apnea (adult) (pediatric)
CPT/HCPCS: 82607-90; 82784-90; 83516-90; 83921-90; 84134-90; 86334-90; 92611-GN; 97110-GP; 97116-GP; 97162-GP; 97166-GO; 97530-GO; 97535-GO; G0378; G8978-GP-CL; G8979-GP-CJ; G8987-GO-CK; G8988-GO-CJ; G8996-GN-CI; G8997-GN-CI; G8998-GN-CI; J1650; J2704; J3010; J3420; Q9967